=== PATIENT | male | born 1965 | race Caucasian/White ===

== ENCOUNTER → 2017-05-26 | Outpatient (CLI) | payer MEDICARE, OTHER ==
--- NOTE | 2017-05-26 12:53 | KCIC ---
MRI right foot without contrast dated 05/26/2017. No comparison available. Clinical indication: Pain and swelling at first metatarsal. Ankle surgery 30 years ago. TECHNIQUE: T1 and T2-weighted imaging performed in 3 planes to include the mid to forefoot region. No contrast administered. FINDINGS: There is focal skin thickening and induration at the plantar aspect of the first MTP joint. Increased T2 signal within the subcutaneous tissues. The signal abnormality extends deep to the sesamoid bones and abductor hallucis tendon which appears ill-defined. There is hyperintense T2 signal and low T1 signal within the medial and lateral sesamoids. Mild increased T2 signal within the marrow of the base and shaft of the first proximal phalanx and head of first metatarsal, without significant loss of signal on T1. No significant joint effusion. The flexor tendon is intact. Plantar plate is grossly intact. Marrow signal is otherwise homogeneous. There is patchy edema throughout the plantar foot musculature with mild diffuse muscle atrophy. No well-circumscribed fluid collection to suggest abscess. IMPRESSION: 1. Skin thickening and skin ulceration over the plantar foot with extension deep to involve the sesamoid bones of the first MTP joint. There is abnormal signal within the sesamoid bones which could be related to sesamoiditis or chronic osteomyelitis. 2. Mild edema edema within the marrow of the first proximal phalanx and first metatarsal head without significant T1 signal loss. This is likely reactive. 3. Diffuse edema within the plantar foot musculature, nonspecific. Consider infectious myositis. Vasogenic or neurogenic edema or other potential causes. No evidence of abscess. Electronically signed by: Hugh Tapia MD (05/26/2017 12:50 PM) [facility]
== END | disposition home or self-care (01) ==
LOC: KCIC MRI 11:29
PROVIDERS: ATTEND Podiatrist Foot & Ankle Surgery
DX: M86.9 Osteomyelitis, unspecified (principal); L98.498 Non-pressure chronic ulcer of skin of other sites with other specified severity; R60.9 Edema, unspecified
CPT/HCPCS: 73718

== ENCOUNTER 2017-06-01 07:30 | Inpatient (IN) | payer MEDICARE, OTHER ==
[~2017-06-01] VITALS: Ht 180.3 cm; Wt 86.6 kg
[2017-06-01 13:09] VITALS: BP 141/68
[2017-06-01] MEDS ORDERED: 0.9 % SODIUM CHLORIDE 10 ML DISP.SYRIN. IV PRN (13:15)
[2017-06-01 14:13] LABS: BASO % 1 % (0-3); EOS % 2 % (0-3); HEMOGLOBIN 13.5 g/dL (13.0-17.5); LYMPH # 0.8 x10^3/uL (1.0-4.8); LYMPH % 13 % (24-48); MEAN CORPUSCULAR HEMOGLOBIN 32 pg (25-35); MEAN CORPUSCULAR HGB CONC 34 g/dL (31-37); MEAN CORPUSCULAR VOLUME 96 fL (79-100); MONO % 10 % (0-9); NEUT % 74 % (31-73); PLATELET COUNT 263 x10^3/uL (140-400); RED BLOOD COUNT 4.16 x10^6/uL (4.30-5.70); RED CELL DISTRIBUTION WIDTH 14.2 % (11.5-14.5); WHITE BLOOD COUNT 6.4 x10^3/uL (4.0-11.0)
[2017-06-01 14:31] LABS: ALBUMIN 3.5 g/dL (3.4-5.0); ALBUMIN/GLOBULIN RATIO 0.6 (1.0-1.7); CREATININE 3.9 mg/dL (0.7-1.3); GFR 16.2; POTASSIUM 3.7 mmol/L (3.5-5.1); TOTAL BILIRUBIN 0.5 mg/dL (0.2-1.0); TOTAL PROTEIN 9.3 g/dL (6.4-8.2)
[2017-06-01 15:00] VITALS: BP 171/80
[2017-06-01 19:00] VITALS: BP 156/82
[2017-06-01] MEDS ORDERED: MICAFUNGIN 100 MG in IV DEXTROSE 5% 100 ML IV ONE (19:00)
--- NOTE | 2017-06-01 19:57 | PDOC1 ---
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 [employer] plans 1st MP resection in AM, HAS BEEN ON DIALYSIS SINCE EARLY 2017 FOLLOWED BY [facility] Reason for Visit: HERE FOR IV ANTIBIOTICS , SUPPORT BEFORE SURGERY Past Medical History Cardiovascular: No pertinent hx Pulmonary: COPD GI: No pertinent hx Renal/: Chronic renal failure Endocrine: Diabetes Family History Family History: Alcohol Abuse, Diabetes Social History Smoke: <1 pack per day ALCOHOL: heavy Current Problem List Problem List DIABETES HTN CKD TOBACCO ABUSE ESRD ON DIALYSIS Problems: Current Medications Current Medications Current Medications Sodium Chloride (Normal Saline Flush) 3 ml PRN DAILY PRN IV AFTER MEDS AND BLOOD DRAWS; Start 06/01/17 at 13:15 Ondansetron HCl (Zofran) 4 mg PRN Q6HRS PRN IV NAUSEA/VOMITING; Start 06/02/17 at 07:00; Stop 06/03/17 at 06:59 Fentanyl Citrate (Fentanyl 2ml Vial) 25 mcg PRN Q5MIN PRN IV MILD PAIN; Start 06/02/17 at 07:00; Stop 06/03/17 at 06:59 Fentanyl Citrate (Fentanyl 2ml Vial) 50 mcg PRN Q5MIN PRN IV MODERATE PAIN; Start 06/02/17 at 07:00; Stop 06/03/17 at 06:59 Morphine Sulfate 1 mg PRN Q10MIN PRN IV SEVERE PAIN; Start 06/02/17 at 07:00; Stop 06/03/17 at 06:59 Ringer's Solution 1,000 ml @ 30 mls/hr Q24H IV ; Start 06/02/17 at 07:00; Stop 06/02/17 at 18:59 Lidocaine HCl (Xylocaine-Mpf 1% Vial) 2 ml PRN 1X PRN ID IV START; Start at 07:00; Stop 06/03/17 at 06:59 Hydromorphone HCl (Dilaudid) 0.5 mg PRN Q10MIN PRN IV SEV PAIN, Second choice; Start 06/02/17 at 07:00; Stop 06/03/17 at 06:59 Prochlorperazine Edisylate (Compazine) 5 mg PACU PRN PRN IV NAUSEA, MRX1; Start 06/02/17 at 07:00; Stop 06/03/17 at 06:59 Piperacillin Sod/ Tazobactam Sod 2.25 gm/Dextrose 50 ml @ 100 mls/hr Q8HRS IV ; Start 06/01/17 at 22:00; Status Cancel Clindamycin Phosphate 50 ml @ 100 mls/hr Q8H IV ; Start 06/01/17 at 19:00 Vancomycin HCl (Vanco Per Pharmacy) 1 each PRN DAILY PRN MC SEE COMMENTS; Start 06/01/17 at 19:00; Status UNV Micafungin Sodium 100 mg/Dextrose 100 ml @ 100 mls/hr 1X ONCE IV ; Start 06/01 at 19:00; Stop 06/01/17 at 19:12; Status DC Piperacillin Sod/ Tazobactam Sod (Zosyn) 2.25 gm Q8HRS IVP ; Start 06/01/17 at 22:00 Vancomycin HCl 2 gm/Dextrose/ Sodium Chloride 500 ml @ 250 mls/hr 1X ONCE IV ; Start 06/01/17 at 20:00; Stop 06/01/17 at 21:59 Micafungin Sodium 100 mg/Sodium Chloride 100 ml @ 100 mls/hr 1X ONCE IV ; Start 06/01/17 at 20:00; Stop 06/01/17 at 20:59 Allergies Allergies: Coded Allergies: No Known Drug Allergies (Unverified , 06/01/17) ROS Review of System 14 PT ROS OTHERWISE NEG General: YES: Fatigue, No: Chills, Night Sweats, Malaise, Appetite, Other PSYCHOLOGICAL ROS: YES: Anxiety, No: Behavioral Disorder, Concentration difficultie, Decreased libido, Depression, Disorientation, Hallucinations, Hostility, Irritablity, Memory difficulties, Mood Swings, Obsessive thoughts, Physical abuse, Sexual abuse, Sleep disturbances, Suicidal ideation, Other Eyes: No Blurry vision, No Decreased vision, No Double vision, No Dry eyes, No Excessive tearing, No Eye Pain, No Itchy Eyes, No Loss of vision, No Photophobia , No Scotomata, No Uses contacts, No Uses glasses, No Other HEENT: No: Heacaches, Visual Changes, Hearing change, Nasal congestion, Nasal discharge, Oral lesions, Sinus pain, Sore Throat, Epistaxis, Sneezing, Snoring, Tinnitus, Vertigo, Vocal changes, Other ALLERGY AND IMMUNOLOGY: No: Hives, Insect Bite Sensitivity, Itchy/Watery Eyes, Nasal Congestion, Post Nasal Drip, Seasonal Allergies, Other ENDOCRINE: YES: Breast Changes, Galactorrhea, Hair Pattern Changes, Hot Flashes , Malaise/lethargy, Mood Swings, Palpitations, Polydipsia/polyuria, Skin Changes , Temperature Intolerance, Unexpected Weight Changes, Other Respiratory: No: Cough, Hemoptysis, Orthopnea, Pleuritic Pain, Shortness of breath, SOB with excertion, Sputum Changes, Stridor, Tachypnea, Wheezing, Other Cardiovascular: No Chest Pain, No Palpitations, No Orthopnea, No Paroxysmal Noc. Dyspnea, No Edema, No Lt Headedness, No Other Genitourinary: No Dysuria, No Frequency, No Incontinence, No Hematuria, No Retention, No Discharge, No Urgency, No Pain, No Flank Pain, No Other, No , No , No , No , No , No , No Skin: Yes Skin Lesion Changes Physical Exam General: Alert, Oriented X3, Cooperative, mild distress HEENT: PERRLA, EOMI, Mucous membr. moist/pink Lungs: Clear to auscultation, Normal air movement Heart: S1S2 Breasts: Not examined, Pt decl breast exam Abdomen: Normal bowel sounds, Soft Rectal Exam: not examined Extremities: No cyanosis Skin: Other (MARKED LESION DISTAL PLANTAR ASPECT) Psych/Mental Status: Mental status NL Vitals Vitals Vital Signs Date Time Temp Pulse Resp B/P (MAP) Pulse Ox O2 Delivery O2 Flow Rate FiO2 06/01/17 19:10 Room Air 06/01/17 15:00 97.5 92 18 171/80 (110) 99 97.5 Labs Labs PULMONIC VALVE The pulmonary valve is normal in structure and function. Doppler and Color Flow revealed trace pulmonic valvular regurgitation. GREAT VESSELS The aortic root is normal in size. The ascending aorta is normal in size. PERICARDIAL EFFUSION There is no evidence of significant pericardial effusion. Critical Notification Critical Value: No <Conclusion> Left ventricle systolic function is normal. The Ejection Fraction is 65%. Tissue Doppler imaging reveals abnormal left ventricular diastolic dysfunction. Transmitral Doppler flow pattern is Grade I-abnormal relaxation pattern. There is mild concentric left ventricular hypertrophy. The left atrium size is normal. The right atrium size is normal. The aortic valve is normal in structure and function. Doppler and Color Flow revealed trace to mild mitral regurgitation. Doppler and Color Flow revealed trace tricuspid regurgitation. There is no pulmonary hypertension. The PA pressure was estimated at 18 mmHg. Doppler and Color Flow revealed trace pulmonic valvular regurgitation. DICTATED and SIGNED BY: JIMY GALARZA MD DATE: 12/02/152025 Laboratory Tests Test 06/01/17 13:12 06/01/17 13:40 Glucose (Fingerstick) 184 mg/dL (70-99) White Blood Count 6.4 x10^3/uL (4.0-11.0) Red Blood Count 4.16 x10^6/uL (4.30-5.70) Hemoglobin 13.5 g/dL (13.0-17.5) Hematocrit 40.0 % (39.0-53.0) Mean Corpuscular Volume 96 fL (79-100) Mean Corpuscular Hemoglobin 32 pg (25-35) Mean Corpuscular Hemoglobin Concent 34 g/dL (31-37) Red Cell Distribution Width 14.2 % (11.5-14.5) Platelet Count 263 x10^3/uL (140-400) Neutrophils (%) (Auto) 74 % (31-73) Lymphocytes (%) (Auto) 13 % (24-48) Monocytes (%) (Auto) 10 % (0-9) Eosinophils (%) (Auto) 2 % (0-3) Basophils (%) (Auto) 1 % (0-3) Neutrophils # (Auto) 4.7 x10^3uL (1.8-7.7) Lymphocytes # (Auto) 0.8 x10^3/uL (1.0-4.8) Monocytes # (Auto) 0.7 x10^3/uL (0.0-1.1) Eosinophils # (Auto) 0.1 x10^3/uL (0.0-0.7) Basophils # (Auto) 0.0 x10^3/uL (0.0-0.2) Erythrocyte Sedimentation Rate 115 (0-15) Sodium Level 139 mmol/L (136-145) Potassium Level 3.7 mmol/L (3.5-5.1) Chloride Level 96 mmol/L (98-107) Carbon Dioxide Level 32 mmol/L (21-32) Anion Gap 11 (6-14) Blood Urea Nitrogen 28 mg/dL (8-26) Creatinine 3.9 mg/dL (0.7-1.3) Estimated GFR (Cockcroft-Gault) 16.2 BUN/Creatinine Ratio 7 (6-20) Glucose Level 192 mg/dL (70-99) Calcium Level 10.0 mg/dL (8.5-10.1) Total Bilirubin 0.5 mg/dL (0.2-1.0) Aspartate Amino Transf (AST/SGOT) 32 U/L (15-37) Alanine Aminotransferase (ALT/SGPT) 30 U/L (16-63) Alkaline Phosphatase 120 U/L (46-116) C-Reactive Protein, Quantitative 60.0 mg/L (0-3.3) Total Protein 9.3 g/dL (6.4-8.2) Albumin 3.5 g/dL (3.4-5.0) Albumin/Globulin Ratio 0.6 (1.0-1.7) Laboratory Tests Test 06/01/17 13:12 06/01/17 13:40 Glucose (Fingerstick) 184 mg/dL (70-99) White Blood Count 6.4 x10^3/uL (4.0-11.0) Red Blood Count 4.16 x10^6/uL (4.30-5.70) Hemoglobin 13.5 g/dL (13.0-17.5) Hematocrit 40.0 % (39.0-53.0) Mean Corpuscular Volume 96 fL (79-100) Mean Corpuscular Hemoglobin 32 pg (25-35) Mean Corpuscular Hemoglobin Concent 34 g/dL (31-37) Red Cell Distribution Width 14.2 % (11.5-14.5) Platelet Count 263 x10^3/uL (140-400) Neutrophils (%) (Auto) 74 % (31-73) Lymphocytes (%) (Auto) 13 % (24-48) Monocytes (%) (Auto) 10 % (0-9) Eosinophils (%) (Auto) 2 % (0-3) Basophils (%) (Auto) 1 % (0-3) Neutrophils # (Auto) 4.7 x10^3uL (1.8-7.7) Lymphocytes # (Auto) 0.8 x10^3/uL (1.0-4.8) Monocytes # (Auto) 0.7 x10^3/uL (0.0-1.1) Eosinophils # (Auto) 0.1 x10^3/uL (0.0-0.7) Basophils # (Auto) 0.0 x10^3/uL (0.0-0.2) Erythrocyte Sedimentation Rate 115 (0-15) Sodium Level 139 mmol/L (136-145) Potassium Level 3.7 mmol/L (3.5-5.1) Chloride Level 96 mmol/L (98-107) Carbon Dioxide Level 32 mmol/L (21-32) Anion Gap 11 (6-14) Blood Urea Nitrogen 28 mg/dL (8-26) Creatinine 3.9 mg/dL (0.7-1.3) Estimated GFR (Cockcroft-Gault) 16.2 BUN/Creatinine Ratio 7 (6-20) Glucose Level 192 mg/dL (70-99) Calcium Level 10.0 mg/dL (8.5-10.1) Total Bilirubin 0.5 mg/dL (0.2-1.0) Aspartate Amino Transf (AST/SGOT) 32 U/L (15-37) Alanine Aminotransferase (ALT/SGPT) 30 U/L (16-63) Alkaline Phosphatase 120 U/L (46-116) C-Reactive Protein, Quantitative 60.0 mg/L (0-3.3) Total Protein 9.3 g/dL (6.4-8.2) Albumin 3.5 g/dL (3.4-5.0) Albumin/Globulin Ratio 0.6 (1.0-1.7) VTE Prophylaxis Ordered VTE Prophylaxis Devices: Yes VTE Pharmacological Prophylaxi: Yes Assessment/Plan Assessment/Plan 1. ADVANCED DIABETIC FOOT ULCER 2. CELLULITIS 3. Tobacco abuse 4. ESRD on dialysis 5. mod alcohol abuse 6. possible osteomyelitis 7. dietary noncompliance plan iv antibiotics consult ID DR HOLCOMB FOR SURGERY Lovenox dvt prophylaxis consult nephrology EKG, CXR BIB SCHAFFER MD Jun 01, 2017 19:57
[2017-06-01] MEDS ORDERED: VANCOMYCIN 2 GM in IV DEXTROSE 5 %-0.45 % NACL 500 ML IV ONE (20:00)
[2017-06-01] MEDS ORDERED: MICAFUNGIN 100 MG in IV NORMAL SALINE 100ML 100 ML IV ONE (20:00)
[2017-06-01] MEDS: VANCOMYCIN PER PHARMACY MC PRN (20:12)
[2017-06-01] MEDS: CLINDAMYCIN 600MG PREMIX 50 ML IV SCH (20:46)
[2017-06-01] MEDS: PIPERACILLIN/TAZO IV Push 2.25 GM VIAL. IVP SCH (20:49)
--- NOTE | 2017-06-01 21:44 | RAD ---
Bilateral lower extremity arterial Doppler 06/01/2017 CLINICAL INDICATION: Osteomyelitis of the right toe with presurgical evaluation. COMPARISON: None. FINDINGS: Grayscale, color Doppler and spectral waveform analysis was obtained of the bilateral lower extremity arterial system. Right lower extremity: Common femoral: Patent with triphasic waveforms 132 cm/s Proximal superficial femoral: Patent with triphasic waveforms 100 cm/s Deep femoral: Patent with triphasic waveforms 133 cm/s Mid superficial femoral: Patent with triphasic waveforms 114 cm/s Distal superficial femoral: Patent with triphasic waveforms 98 cm/s Popliteal: Patent with triphasic waveforms 108 cm/s Proximal posterior tibial: Patent with triphasic waveforms 70 cm/s Peroneal: Patent triphasic waveforms 71 cm/s Distal posterior tibial: Patent triphasic waveforms 58 cm/s Dorsalis pedis: Patent triphasic waveforms 114 cm/s Anterior tibial: Patent triphasic waveforms 91 cm/s There are scattered calcified plaque throughout the right lower extremity arterial system without evidence of focal occlusion. Left lower extremity: Common femoral: Patent triphasic waveforms 84 cm/s Proximal superficial femoral: Patent triphasic waveforms 70 cm/s Deep femoral: Patent triphasic waveforms 54 cm/s Mid superficial femoral: Patent triphasic waveforms 84 cm/s Distal superficial femoral: Patent triphasic waveforms 73 cm/s Popliteal: Patent triphasic waveforms 82 cm/s Mid posterior tibial: Patent triphasic waveforms 67 cm/s Distal posterior tibial: Patent triphasic waveforms 67 cm/s Peroneal: Patent triphasic waveforms 81 cm/s Dorsalis pedis: Patent triphasic waveforms 102 cm/s Anterior tibial: Patent triphasic waveforms 88 cm/s There is scattered calcified atheromatous disease throughout the left lower extremity arterial system without focal occlusion. IMPRESSION: Bilateral lower extremity arterial calcified plaque without evidence of hemodynamically significant stenosis. Electronically signed by: Gustavo Pinzon MD (06/01/2017 9:41 PM) [facility]
[2017-06-01] MEDS: HEPARIN PF for SUB-Q USE 5,000 UNIT/0.5 ML VIAL. SQ SCH ×2 (22:00→23:46)
[2017-06-01] MEDS ORDERED: PIPERACILLIN/TAZOBACTAM 2.25 GM in IV DEXTROSE 5% 50 ML IV SCH (22:00)
--- NOTE | 2017-06-01 22:14 | EKG ---
[facility] [address] [place] [address] Test Date: 2017-06-01 Test Time: 22:12:15 Pat Name: AVA CARRASQUILLO Department: Room: 408 Gender: M Art Educator: : 1965 Requested By: BIB SCHAFFER Order Number: [id number] Reading MD: Byron Reina MD Measurements Intervals [place] Rate: 83 P: -39 DE: 152 QRS: 33 QRSD: 94 T: 59 QT: 358 QTc: 421 Interpretive Statements SINUS RHYTHM NON-SPECIFIC ST/T CHANGES Electronically Signed On 06-09-2017 14:32:50 MAINTENANCE PLANNER by Byron Reina MD
[2017-06-02] VITALS (14 sets, daily range): BP systolic 132–179; BP diastolic 52–102
[2017-06-02] MEDS: CLINDAMYCIN 600MG PREMIX 50 ML IV SCH (02:19)
[2017-06-02 04:28] LABS: BASO % 1 % (0-3); EOS % 5 % (0-3); HEMATOCRIT 34.1 % (39.0-53.0); HEMOGLOBIN 11.5 g/dL (13.0-17.5); LYMPH # 1.2 x10^3/uL (1.0-4.8); LYMPH % 18 % (24-48); MEAN CORPUSCULAR HEMOGLOBIN 32 pg (25-35); MEAN CORPUSCULAR HGB CONC 34 g/dL (31-37); MEAN CORPUSCULAR VOLUME 96 fL (79-100); MONO % 11 % (0-9); NEUT % 66 % (31-73); PLATELET COUNT 204 x10^3/uL (140-400); RED BLOOD COUNT 3.57 x10^6/uL (4.30-5.70); RED CELL DISTRIBUTION WIDTH 14.4 % (11.5-14.5); WHITE BLOOD COUNT 6.4 x10^3/uL (4.0-11.0)
[2017-06-02 04:56] LABS: ALBUMIN 2.6 g/dL (3.4-5.0); ALBUMIN/GLOBULIN RATIO 0.6 (1.0-1.7); CALCIUM 8.7 mg/dL (8.5-10.1); CREATININE 4.9 mg/dL (0.7-1.3); GFR 12.4; POTASSIUM 3.6 mmol/L (3.5-5.1); TOTAL BILIRUBIN 0.5 mg/dL (0.2-1.0); TOTAL PROTEIN 7.2 g/dL (6.4-8.2)
[2017-06-02] MEDS: PIPERACILLIN/TAZO IV Push 2.25 GM VIAL. IVP SCH ×3 (05:32→20:12)
[2017-06-02] MEDS ORDERED: LIDOCAINE 1% 20 ML VIAL. ONE (06:51)
[2017-06-02] MEDS ORDERED: BUPIVACAINE 0.5% 50 ML VIAL. ONE (06:51)
[2017-06-02] MEDS ORDERED: DEXAMETHASONE SOD PHOS 4 MG/ML VIAL ONE (06:52)
[2017-06-02] MEDS ORDERED: POVIDONE-IODINE 10% TOPICAL OINTMENT 28GM TUBE. TP ONE (06:52)
[2017-06-02] MEDS ORDERED: LIDOCAINE 1% PF 2 ML VIAL. ID PRN (07:00)
[2017-06-02] MEDS ORDERED: ONDANSETRON PF 4 MG/2 ML VIAL. IV PRN (07:00)
[2017-06-02] MEDS ORDERED: PROCHLORPERAZINE 10 MG/2 ML VIAL. IV PRN (07:00)
[2017-06-02] MEDS ORDERED: MORPHINE SULFATE 2 MG/ML DISP.SYRIN. IV PRN (07:00)
[2017-06-02] MEDS ORDERED: HYDROmorphone 2 MG/ML VIAL IV PRN (07:00)
[2017-06-02] MEDS ORDERED: IV RINGERS,LACTATED 1000ML 1,000 ML IV SCH (07:00)
[2017-06-02] MEDS ORDERED: fentaNYL PF VIAL 100 MCG/2 ML VIAL IV PRN ×2 (07:00)
[2017-06-02] MEDS ORDERED: PROPOFOL 20 ML IV ONE (07:17)
[2017-06-02] MEDS ORDERED: fentaNYL PF VIAL 100 MCG/2 ML VIAL ONE (07:17)
[2017-06-02] MEDS ORDERED: DEXAMETHASONE SOD PHOS 20 MG/5 ML VIAL. ONE (07:17)
[2017-06-02] MEDS ORDERED: ONDANSETRON PF 4 MG/2 ML VIAL. ONE (07:17)
[2017-06-02] MEDS ORDERED: LIDOCAINE 2% PF Vial for OR 5 ML VIAL. ONE (07:17)
--- NOTE | 2017-06-02 07:19 | RAD ---
Portable chest, 06/01/2017: History: Preop evaluation for toe amputation, diabetes The heart size and pulmonary vascularity are normal. No pulmonary infiltrates are seen. There is no evidence of pleural fluid. IMPRESSION: No acute cardiopulmonary abnormality is detected.
--- NOTE | 2017-06-02 07:26 | PDOC ---
Infectious Disease Note ROS ROS Vital Sign Vital Signs Vital Signs Date Time Temp Pulse Resp B/P (MAP) Pulse Ox O2 Delivery O2 Flow Rate FiO2 06/02/17 02:36 98.1 81 16 147/52 (83) Room Air 98.1 06/01/17 23:00 94 Labs Lab Laboratory Tests Test 06/01/17 13:12 06/01/17 13:40 06/01/17 20:54 06/02/17 03:40 Glucose (Fingerstick) 184 mg/dL (70-99) 152 mg/dL (70-99) White Blood Count 6.4 x10^3/uL (4.0-11.0) 6.4 x10^3/uL (4.0-11.0) Red Blood Count 4.16 x10^6/uL (4.30-5.70) 3.57 x10^6/uL (4.30-5.70) Hemoglobin 13.5 g/dL (13.0-17.5) 11.5 g/dL (13.0-17.5) Hematocrit 40.0 % (39.0-53.0) 34.1 % (39.0-53.0) Mean Corpuscular Volume 96 fL (79-100) 96 fL (79-100) Mean Corpuscular Hemoglobin 32 pg (25-35) 32 pg (25-35) Mean Corpuscular Hemoglobin Concent 34 g/dL (31-37) 34 g/dL (31-37) Red Cell Distribution Width 14.2 % (11.5-14.5) 14.4 % (11.5-14.5) Platelet Count 263 x10^3/uL (140-400) 204 x10^3/uL (140-400) Neutrophils (%) (Auto) 74 % (31-73) 66 % (31-73) Lymphocytes (%) (Auto) 13 % (24-48) 18 % (24-48) Monocytes (%) (Auto) 10 % (0-9) 11 % (0-9) Eosinophils (%) (Auto) 2 % (0-3) 5 % (0-3) Basophils (%) (Auto) 1 % (0-3) 1 % (0-3) Neutrophils # (Auto) 4.7 x10^3uL (1.8-7.7) 4.2 x10^3uL (1.8-7.7) Lymphocytes # (Auto) 0.8 x10^3/uL (1.0-4.8) 1.2 x10^3/uL (1.0-4.8) Monocytes # (Auto) 0.7 x10^3/uL (0.0-1.1) 0.7 x10^3/uL (0.0-1.1) Eosinophils # (Auto) 0.1 x10^3/uL (0.0-0.7) 0.3 x10^3/uL (0.0-0.7) Basophils # (Auto) 0.0 x10^3/uL (0.0-0.2) 0.0 x10^3/uL (0.0-0.2) Erythrocyte Sedimentation Rate 115 (0-15) Sodium Level 139 mmol/L (136-145) 132 mmol/L (136-145) Potassium Level 3.7 mmol/L (3.5-5.1) 3.6 mmol/L (3.5-5.1) Chloride Level 96 mmol/L (98-107) 95 mmol/L (98-107) Carbon Dioxide Level 32 mmol/L (21-32) 25 mmol/L (21-32) Anion Gap 11 (6-14) 12 (6-14) Blood Urea Nitrogen 28 mg/dL (8-26) 41 mg/dL (8-26) Creatinine 3.9 mg/dL (0.7-1.3) 4.9 mg/dL (0.7-1.3) Estimated GFR (Cockcroft-Gault) 16.2 12.4 BUN/Creatinine Ratio 7 (6-20) 8 (6-20) Glucose Level 192 mg/dL (70-99) 155 mg/dL (70-99) Hemoglobin A1c 7.1 % (4.8-5.6) Calcium Level 10.0 mg/dL (8.5-10.1) 8.7 mg/dL (8.5-10.1) Total Bilirubin 0.5 mg/dL (0.2-1.0) 0.5 mg/dL (0.2-1.0) Aspartate Amino Transf (AST/SGOT) 32 U/L (15-37) 25 U/L (15-37) Alanine Aminotransferase (ALT/SGPT) 30 U/L (16-63) 22 U/L (16-63) Alkaline Phosphatase 120 U/L (46-116) 89 U/L (46-116) C-Reactive Protein, Quantitative 60.0 mg/L (0-3.3) Total Protein 9.3 g/dL (6.4-8.2) 7.2 g/dL (6.4-8.2) Albumin 3.5 g/dL (3.4-5.0) 2.6 g/dL (3.4-5.0) Albumin/Globulin Ratio 0.6 (1.0-1.7) 0.6 (1.0-1.7) Micro MRI 05/26 - IMPRESSION: 1. Skin thickening and skin ulceration over the plantar foot with extension deep to involve the sesamoid bones of the first MTP joint. There is abnormal signal within the sesamoid bones which could be related to sesamoiditis or chronic osteomyelitis. 2. Mild edema edema within the marrow of the first proximal phalanx and first metatarsal head without significant T1 signal loss. This is likely reactive. 3. Diffuse edema within the plantar foot musculature, nonspecific. Consider infectious myositis. Vasogenic or neurogenic edema or other potential causes. No evidence of abscess. Objective Assessment Right foot wound on plantar aspect - likely osteomyelitis DM since age 16 CKD on HD - since Jul 2016 COPD Plan Plan of Care Instituted Vanc/Clinda/Zosyn/Micafungin 06/01. Will d/c Clinda and Micafungin Begin Fluconazole F/u labs and cults Await surgery Thank you # [id number] LEEANNE MARISCAL MD Jun 02, 2017 07:26
[2017-06-02] MEDS ORDERED: IV NORMAL SALINE 250ML 500 ML IV PRN (07:30)
[2017-06-02] MEDS: LACTOBACILLUS RHAMNOSUS GG 1 CAPSULE. PO SCH ×2 (07:49→20:12)
[2017-06-02] MEDS ORDERED: PHENYLEPHRINE 10 MG/ML VIAL. ONE (07:56)
[2017-06-02] MEDS ORDERED: 0.9 % SODIUM CHLORIDE 50 ML VIAL. IJ ONE (07:57)
[2017-06-02] MEDS ORDERED: SEVOFLURANE 31 TO 60 MINUTES. IH ONE (07:57)
[2017-06-02] MEDS ORDERED: IV NORMAL SALINE 1000ML BAG 1,000 ML IV SCH (08:00)
--- NOTE | 2017-06-02 08:36 | CONS ---
DATE OF CONSULTATION: 06/02/2017 The patient's room is 408, but seen in the preop room. REQUESTING PHYSICIAN: Dr. Hernadez. REASON FOR CONSULTATION: Osteomyelitis. HISTORY OF PRESENT ILLNESS: The patient is a 52-year-old gentleman with history of diabetes since age 16, also has some COPD, who has had problems with his right foot with ulcers on and off since 2012. Additionally, he started dialysis in 07/2016. He states he has been doing fairly well until he was instructed to put some lotion on his feet. He is a little questionable historian because he states he has been putting lotion on his foot for a year, and now, he has developed a worsening ulcer on his right foot. He denies any trauma to the area. Denies any new shoes, but states that it just kind of suddenly worsened with increasing pain and redness. He denies taking any antibiotics prior to admission. He underwent an MRI of his foot on 05/26, which revealed skin thickening, skin ulceration of the plantar foot with extension deep to involve the sesamoid bones of the first metatarsal joint, abnormal signal in the sesamoid bones which could be related to sesamoiditis, chronic osteomyelitis. He has mild edema within the marrow on the first proximal phalanx, first metatarsal head without significant T1 signal loss, likely reactive, and he also has diffuse edema within the plantar foot musculature. There was nonspecific considered infectious myositis. He was admitted yesterday secondary to a worsening ulcer and to undergo first metatarsal resection in the morning. I was consulted yesterday afternoon, instituted vancomycin, clindamycin, Zosyn and micafungin as well as consulting Dr. Jen Savage for dialysis and order an arterial Doppler given his longstanding history of diabetes and history of smoking. There are no culture results in the computer from previous admissions. Currently, the patient is lying in bed. He is fairly comfortable. Denies any fever, chills, sweats. He has no headaches. He has no change in vision, did have cataract surgery. He has no sore throat, cough or chest pain. No nausea, vomiting, diarrhea or constipation. He does make some urine occasionally without any complications. Denies any rashes or falls or traumas. PAST MEDICAL HISTORY: Positive for diabetes, hypertension, history of COPD. Chronic renal failure, on dialysis as well as foot wounds. PAST SURGICAL HISTORY: Positive for cataract surgery and denies any other surgeries except for some local debridements. REVIEW OF SYSTEMS: Otherwise negative except mentioned above. ALLERGIES: No known drug allergies. FAMILY HISTORY: Positive for diabetes, hypertension, alcohol abuse. SOCIAL HISTORY: He quit smoking, does use alcohol. Has no pets and is not working, currently on social security. CURRENT MEDICATIONS: Include the clindamycin, micafungin, vancomycin, Zosyn. He did receive dexamethasone, lactobacillus, heparin. Other meds are available and reviewed in chart. PHYSICAL EXAMINATION: He has got an AV graft or shunt in his left upper extremity without signs of any complications. LABORATORY DATA: White count was 6.4 on admission, 6.4 currently. Hemoglobin 11.5, platelets of 204, with 66 neutrophils, 18 lymphs. Sed rate was 115. Creatinine glucose 155. Normal liver function study tests. MRI reviewed in the history of present illness. Arterial Dopplers show bilateral lower extremity arterial calcified plaque without evidence of hemodynamically significant stenosis. Chest x-ray without acute pulmonary abnormality. IMPRESSION: 1. Right foot wound on plantar aspect, likely osteomyelitis. 2. Diabetes since age 16. 3. Chronic kidney disease, on hemodialysis since 07/2016. 4. Chronic obstructive pulmonary disease. RECOMMENDATIONS: Again, on 06/01, I instituted vancomycin, clindamycin, Zosyn and micafungin. Today, we will discontinue the clindamycin and micafungin. We will continue the vancomycin and Zosyn. We will add fluconazole. Follow up on labs and cultures, await for his surgery. Thank you Dr. Hernadez for allowing me to participate in the patient's care. If you have any questions, please do not hesitate to contact me. LEEANNE MARISCAL MD DR: JENNIFER/sarah JOB#: [id number] / [id number]
--- NOTE | 2017-06-02 08:51 | PDOC2 ---
CONSULT Date of Consult Date of Consult DATE: 06/02/17 TIME: 08:38 Reason for Consult Reason for Consult: osteomyelitis right foot 1st ray Identification/Chief Complaint Chief Complaint chronic ulceration, MRI confirms osteomyelitis right 1st metatarsal head, sesamoids, proximal phalanx Problems: Source Source: Patient History of Present Illness Reason for Visit: 52 year old male with DM, peripheral neuropathy, non compliance, ESRD on HD Monday, , Monday admitted to [facility] for IV Antibiotics for treatment of osteomyelitis. Patient has been non compliant with non weightbearing right foot as he states he has to walk to bus for dialysis and has no ride. He has had home health performing local wound care. MRI was ordered and noted + osteomyelitis right foot. He denies nausea, vomitting, fever, chills. Past Medical History Cardiovascular: No pertinent hx Pulmonary: COPD GI: No pertinent hx Renal/: Chronic renal failure Endocrine: Diabetes Family History Family History: Alcohol Abuse, Diabetes Social History <1 pack per day ALCOHOL: heavy Current Medications Current Medications Current Medications Sodium Chloride (Normal Saline Flush) 3 ml PRN DAILY PRN IV AFTER MEDS AND BLOOD DRAWS; Start 06/01/17 at 13:15 Ondansetron HCl (Zofran) 4 mg PRN Q6HRS PRN IV NAUSEA/VOMITING; Start 06/02/17 at 07:00; Stop 06/03/17 at 06:59 Fentanyl Citrate (Fentanyl 2ml Vial) 25 mcg PRN Q5MIN PRN IV MILD PAIN; Start 06/02/17 at 07:00; Stop 06/03/17 at 06:59 Fentanyl Citrate (Fentanyl 2ml Vial) 50 mcg PRN Q5MIN PRN IV MODERATE PAIN; Start 06/02/17 at 07:00; Stop 06/03/17 at 06:59 Morphine Sulfate 1 mg PRN Q10MIN PRN IV SEVERE PAIN; Start 06/02/17 at 07:00; Stop 06/03/17 at 06:59 Ringer's Solution 1,000 ml @ 30 mls/hr Q24H IV ; Start 06/02/17 at 07:00; Stop 06/02/17 at 18:59 Lidocaine HCl (Xylocaine-Mpf 1% Vial) 2 ml PRN 1X PRN ID IV START; Start at 07:00; Stop 06/03/17 at 06:59 Hydromorphone HCl (Dilaudid) 0.5 mg PRN Q10MIN PRN IV SEV PAIN, Second choice; Start 06/02/17 at 07:00; Stop 06/03/17 at 06:59 Prochlorperazine Edisylate (Compazine) 5 mg PACU PRN PRN IV NAUSEA, MRX1; Start 06/02/17 at 07:00; Stop 06/03/17 at 06:59 Piperacillin Sod/ Tazobactam Sod 2.25 gm/Dextrose 50 ml @ 100 mls/hr Q8HRS IV ; Start 06/01/17 at 22:00; Status Cancel Clindamycin Phosphate 50 ml @ 100 mls/hr Q8H IV Last administered on 02:19; Start 06/01/17 at 19:00; Stop 06/02/17 at 07:26; Status DC Vancomycin HCl (Vanco Per Pharmacy) 1 each PRN DAILY PRN MC SEE COMMENTS Last administered on 06/01/17 20:12; Start 06/01/17 at 19:00 Micafungin Sodium 100 mg/Dextrose 100 ml @ 100 mls/hr 1X ONCE IV ; Start 06/01 at 19:00; Stop 06/01/17 at 19:59; Status Cancel Piperacillin Sod/ Tazobactam Sod (Zosyn) 2.25 gm Q8HRS IVP Last administered on 06/02/17 05:32; Start 06/01/17 at 22:00 Vancomycin HCl 2 gm/Dextrose/ Sodium Chloride 500 ml @ 250 mls/hr 1X ONCE IV Last administered on 06/01/17 20:46; Start 06/01/17 at 20:00; Stop 06/01/17 at 21:59; Status DC Micafungin Sodium 100 mg/Sodium Chloride 100 ml @ 100 mls/hr 1X ONCE IV Last administered on 06/01/17 20:46; Start 06/01/17 at 20:00; Stop 06/02/17 at 07:26 ; Status DC Heparin Sodium (Porcine) (Heparin Sq) 5,000 unit Q8HRS SQ ; Start 06/01/17 at 22 :00 Lidocaine HCl 20 ml STK-MED ONCE .ROUTE Last administered on 06/02/17 07:54; Start 06/02/17 at 06:51; Stop 06/02/17 at 06:52; Status DC Bupivacaine HCl (Marcaine 0.5%) 50 ml STK-MED ONCE .ROUTE Last administered on 06/02/17t 07:54; Start 06/02/17 at 06:51; Stop 06/02/17 at 06:52; Status DC Povidone Iodine ( Betadine Oint) 28 rosetta STK-MED ONCE TP ; Start 06/02/17 at 06: 52; Stop 06/02/17 at 06:53; Status DC Dexamethasone Sodium Phosphate (Decadron) 4 mg STK-MED ONCE .ROUTE ; Start 06/02 at 06:52; Stop 06/02/17 at 06:53; Status DC Propofol 20 ml @ As Directed STK-MED ONCE IV ; Start 06/02/17 at 07:17; Stop at 07:18; Status DC Dexamethasone Sodium Phosphate (Decadron) 20 mg STK-MED ONCE .ROUTE ; Start 06/02/17 at 07:17; Stop 06/02/17 at 07:18; Status DC Lidocaine HCl (Lidocaine Pf 2% Vial) 5 ml STK-MED ONCE .ROUTE ; Start 06/02/17 at 07:17; Stop 06/02/17 at 07:18; Status DC Ondansetron HCl (Zofran) 4 mg STK-MED ONCE .ROUTE ; Start 06/02/17 at 07:17; Stop 06/02/17 at 07:18; Status DC Fentanyl Citrate (Fentanyl 2ml Vial) 100 mcg STK-MED ONCE .ROUTE ; Start at 07:17; Stop 06/02/17 at 07:18; Status DC Sodium Chloride 500 ml @ 250 mls/hr PACU PRN PRN IV TKO; Start 06/02/17 at 07: 30 Fluconazole (Diflucan) 100 mg DAILY PO ; Start 06/02/17 at 09:00 Lactobacillus Rhamnosus (Culturelle) 1 cap BID PO ; Start 06/02/17 at 09:00 Phenylephrine HCl (Ministerio-Synephrine Inj) 10 mg STK-MED ONCE .ROUTE ; Start at 07:56; Stop 06/02/17 at 07:57; Status DC Sodium Chloride (Sodium Chloride) 50 ml STK-MED ONCE IJ ; Start 06/02/17 at 07: 57; Stop 06/02/17 at 07:58; Status DC Sevoflurane (Ultane) 30 ml STK-MED ONCE IH ; Start 06/02/17 at 07:57; Stop 06/02 at 07:58; Status DC Allergies Allergies: Coded Allergies: No Known Drug Allergies (Unverified , 06/01/17) ROS General: No: Chills, Night Sweats, Fatigue, Malaise, Appetite, Other PSYCHOLOGICAL ROS: No: Anxiety, Behavioral Disorder, Concentration difficultie , Decreased libido, Depression, Disorientation, Hallucinations, Hostility, Irritablity, Memory difficulties, Mood Swings, Obsessive thoughts, Physical abuse, Sexual abuse, Sleep disturbances, Suicidal ideation, Other Eyes: No Blurry vision, No Decreased vision, No Double vision, No Dry eyes, No Excessive tearing, No Eye Pain, No Itchy Eyes, No Loss of vision, No Photophobia , No Scotomata, No Uses contacts, No Uses glasses, No Other HEENT: No: Heacaches, Visual Changes, Hearing change, Nasal congestion, Nasal discharge, Oral lesions, Sinus pain, Sore Throat, Epistaxis, Sneezing, Snoring, Tinnitus, Vertigo, Vocal changes, Other ALLERGY AND IMMUNOLOGY: No: Hives, Insect Bite Sensitivity, Itchy/Watery Eyes, Nasal Congestion, Post Nasal Drip, Seasonal Allergies, Other Hematological and Lymphatic: No: Bleeding Problems, Blood Clots, Blood Transfusions, Brusing, Night Sweats, Pallor, Swollen Lymph Nodes, Other ENDOCRINE: No: Breast Changes, Galactorrhea, Hair Pattern Changes, Hot Flashes , Malaise/lethargy, Mood Swings, Palpitations, Polydipsia/polyuria, Skin Changes , Temperature Intolerance, Unexpected Weight Changes, Other Respiratory: No: Cough, Hemoptysis, Orthopnea, Pleuritic Pain, Shortness of breath, SOB with excertion, Sputum Changes, Stridor, Tachypnea, Wheezing, Other Cardiovascular: No Chest Pain, No Palpitations, No Orthopnea, No Paroxysmal Noc. Dyspnea, No Edema, No Lt Headedness, No Other Gastrointestinal: No Nausea, No Vomiting, No Abdominal Pain, No Diarrhea, No Constipation, No Melena, No Hematochezia, No Other Genitourinary: No Dysuria, No Frequency, No Incontinence, No Hematuria, No Retention, No Discharge, No Urgency, No Pain, No Flank Pain, No Other, No , No , No , No , No , No , No Musculoskeletal: No Gait Disturbance, No Joint Pain, No Joint Stiffness, No Joint Swelling, No Muscle Pain, No Muscular Weakness, No Pain In:, No Swelling In:, No Other Neurological: No Behavorial Changes, No Bowel/Bladder ControlChng, No Confusion , No Dizziness, No Gait Disturbance, No Headaches, No Impaired Coord/balance, No Memory Loss, No Numbness/Tingling, No Seizures, No Speech Problems, No Tremors, No Visual Changes, No Weakness, No Other Skin: Yes Other (chronic ulceration plantar right foot 1st metatarsal), No Dry Skin, No Eczema, No Hair Changes, No Lumps, No Mole Changes, No Mottling, No Nail Changes, No Pruritus, No Rash, No Skin Lesion Changes, No Acne Physical Exam Physical Exam Lower extremity: Note full thickness ulceration plantar 1st metatarsal head right foot with flexor tendon exposed. +probe to bone. +serosanguinous drainage. +localized erythema. +edema to 1st ray. DP and PT 2/4. CFT is less than 3 sec to all digits. Sensation absent to sharp dull. Increased medial arch with plantarflexed 1st ray bilateral and noted fat pad atrophy to metatarsal heads 1-5 bilateral foot. General: Alert, Oriented X3, No acute distress Vitals VITALS Vital Signs Date Time Temp Pulse Resp B/P (MAP) Pulse Ox O2 Delivery O2 Flow Rate FiO2 06/02/17 07:11 97.2 78 15 156/82 96 Room Air 97.2 Labs Labs Laboratory Tests Test 06/01/17 13:12 06/01/17 13:40 06/01/17 20:54 06/02/17 03:40 Glucose (Fingerstick) 184 mg/dL (70-99) 152 mg/dL (70-99) White Blood Count 6.4 x10^3/uL (4.0-11.0) 6.4 x10^3/uL (4.0-11.0) Red Blood Count 4.16 x10^6/uL (4.30-5.70) 3.57 x10^6/uL (4.30-5.70) Hemoglobin 13.5 g/dL (13.0-17.5) 11.5 g/dL (13.0-17.5) Hematocrit 40.0 % (39.0-53.0) 34.1 % (39.0-53.0) Mean Corpuscular Volume 96 fL (79-100) 96 fL (79-100) Mean Corpuscular Hemoglobin 32 pg (25-35) 32 pg (25-35) Mean Corpuscular Hemoglobin Concent 34 g/dL (31-37) 34 g/dL (31-37) Red Cell Distribution Width 14.2 % (11.5-14.5) 14.4 % (11.5-14.5) Platelet Count 263 x10^3/uL (140-400) 204 x10^3/uL (140-400) Neutrophils (%) (Auto) 74 % (31-73) 66 % (31-73) Lymphocytes (%) (Auto) 13 % (24-48) 18 % (24-48) Monocytes (%) (Auto) 10 % (0-9) 11 % (0-9) Eosinophils (%) (Auto) 2 % (0-3) 5 % (0-3) Basophils (%) (Auto) 1 % (0-3) 1 % (0-3) Neutrophils # (Auto) 4.7 x10^3uL (1.8-7.7) 4.2 x10^3uL (1.8-7.7) Lymphocytes # (Auto) 0.8 x10^3/uL (1.0-4.8) 1.2 x10^3/uL (1.0-4.8) Monocytes # (Auto) 0.7 x10^3/uL (0.0-1.1) 0.7 x10^3/uL (0.0-1.1) Eosinophils # (Auto) 0.1 x10^3/uL (0.0-0.7) 0.3 x10^3/uL (0.0-0.7) Basophils # (Auto) 0.0 x10^3/uL (0.0-0.2) 0.0 x10^3/uL (0.0-0.2) Erythrocyte Sedimentation Rate 115 (0-15) Sodium Level 139 mmol/L (136-145) 132 mmol/L (136-145) Potassium Level 3.7 mmol/L (3.5-5.1) 3.6 mmol/L (3.5-5.1) Chloride Level 96 mmol/L (98-107) 95 mmol/L (98-107) Carbon Dioxide Level 32 mmol/L (21-32) 25 mmol/L (21-32) Anion Gap 11 (6-14) 12 (6-14) Blood Urea Nitrogen 28 mg/dL (8-26) 41 mg/dL (8-26) Creatinine 3.9 mg/dL (0.7-1.3) 4.9 mg/dL (0.7-1.3) Estimated GFR (Cockcroft-Gault) 16.2 12.4 BUN/Creatinine Ratio 7 (6-20) 8 (6-20) Glucose Level 192 mg/dL (70-99) 155 mg/dL (70-99) Hemoglobin A1c 7.1 % (4.8-5.6) Calcium Level 10.0 mg/dL (8.5-10.1) 8.7 mg/dL (8.5-10.1) Total Bilirubin 0.5 mg/dL (0.2-1.0) 0.5 mg/dL (0.2-1.0) Aspartate Amino Transf (AST/SGOT) 32 U/L (15-37) 25 U/L (15-37) Alanine Aminotransferase (ALT/SGPT) 30 U/L (16-63) 22 U/L (16-63) Alkaline Phosphatase 120 U/L (46-116) 89 U/L (46-116) C-Reactive Protein, Quantitative 60.0 mg/L (0-3.3) Total Protein 9.3 g/dL (6.4-8.2) 7.2 g/dL (6.4-8.2) Albumin 3.5 g/dL (3.4-5.0) 2.6 g/dL (3.4-5.0) Albumin/Globulin Ratio 0.6 (1.0-1.7) 0.6 (1.0-1.7) Laboratory Tests Test 06/01/17 13:12 06/01/17 13:40 06/01/17 20:54 06/02/17 03:40 Glucose (Fingerstick) 184 mg/dL (70-99) 152 mg/dL (70-99) White Blood Count 6.4 x10^3/uL (4.0-11.0) 6.4 x10^3/uL (4.0-11.0) Red Blood Count 4.16 x10^6/uL (4.30-5.70) 3.57 x10^6/uL (4.30-5.70) Hemoglobin 13.5 g/dL (13.0-17.5) 11.5 g/dL (13.0-17.5) Hematocrit 40.0 % (39.0-53.0) 34.1 % (39.0-53.0) Mean Corpuscular Volume 96 fL (79-100) 96 fL (79-100) Mean Corpuscular Hemoglobin 32 pg (25-35) 32 pg (25-35) Mean Corpuscular Hemoglobin Concent 34 g/dL (31-37) 34 g/dL (31-37) Red Cell Distribution Width 14.2 % (11.5-14.5) 14.4 % (11.5-14.5) Platelet Count 263 x10^3/uL (140-400) 204 x10^3/uL (140-400) Neutrophils (%) (Auto) 74 % (31-73) 66 % (31-73) Lymphocytes (%) (Auto) 13 % (24-48) 18 % (24-48) Monocytes (%) (Auto) 10 % (0-9) 11 % (0-9) Eosinophils (%) (Auto) 2 % (0-3) 5 % (0-3) Basophils (%) (Auto) 1 % (0-3) 1 % (0-3) Neutrophils # (Auto) 4.7 x10^3uL (1.8-7.7) 4.2 x10^3uL (1.8-7.7) Lymphocytes # (Auto) 0.8 x10^3/uL (1.0-4.8) 1.2 x10^3/uL (1.0-4.8) Monocytes # (Auto) 0.7 x10^3/uL (0.0-1.1) 0.7 x10^3/uL (0.0-1.1) Eosinophils # (Auto) 0.1 x10^3/uL (0.0-0.7) 0.3 x10^3/uL (0.0-0.7) Basophils # (Auto) 0.0 x10^3/uL (0.0-0.2) 0.0 x10^3/uL (0.0-0.2) Erythrocyte Sedimentation Rate 115 (0-15) Sodium Level 139 mmol/L (136-145) 132 mmol/L (136-145) Potassium Level 3.7 mmol/L (3.5-5.1) 3.6 mmol/L (3.5-5.1) Chloride Level 96 mmol/L (98-107) 95 mmol/L (98-107) Carbon Dioxide Level 32 mmol/L (21-32) 25 mmol/L (21-32) Anion Gap 11 (6-14) 12 (6-14) Blood Urea Nitrogen 28 mg/dL (8-26) 41 mg/dL (8-26) Creatinine 3.9 mg/dL (0.7-1.3) 4.9 mg/dL (0.7-1.3) Estimated GFR (Cockcroft-Gault) 16.2 12.4 BUN/Creatinine Ratio 7 (6-20) 8 (6-20) Glucose Level 192 mg/dL (70-99) 155 mg/dL (70-99) Hemoglobin A1c 7.1 % (4.8-5.6) Calcium Level 10.0 mg/dL (8.5-10.1) 8.7 mg/dL (8.5-10.1) Total Bilirubin 0.5 mg/dL (0.2-1.0) 0.5 mg/dL (0.2-1.0) Aspartate Amino Transf (AST/SGOT) 32 U/L (15-37) 25 U/L (15-37) Alanine Aminotransferase (ALT/SGPT) 30 U/L (16-63) 22 U/L (16-63) Alkaline Phosphatase 120 U/L (46-116) 89 U/L (46-116) C-Reactive Protein, Quantitative 60.0 mg/L (0-3.3) Total Protein 9.3 g/dL (6.4-8.2) 7.2 g/dL (6.4-8.2) Albumin 3.5 g/dL (3.4-5.0) 2.6 g/dL (3.4-5.0) Albumin/Globulin Ratio 0.6 (1.0-1.7) 0.6 (1.0-1.7) Images Images Non invasive arterial doppler 06/01/17: IMPRESSION: Bilateral lower extremity arterial calcified plaque without evidence of hemodynamically significant stenosis. MRI 05/26/17: IMPRESSION: 1. Skin thickening and skin ulceration over the plantar foot with extension deep to involve the sesamoid bones of the first MTP joint. There is abnormal signal within the sesamoid bones which could be related to sesamoiditis or chronic osteomyelitis. 2. Mild edema edema within the marrow of the first proximal phalanx and first metatarsal head without significant T1 signal loss. This is likely reactive. 3. Diffuse edema within the plantar foot musculature, nonspecific. Consider infectious myositis. Vasogenic or neurogenic edema or other potential causes. No evidence of abscess. Assessment/Plan Assessment/Plan 52 year old male with +osteomyelitis right 1st ray with pes cavus, plantarflexed 1st ray, fat pad atrophy, roy grade 3 ulceration. -ID on consult appreciate recs for IV antibiotics -Recommend and discussed with patient partial 1st ray amputation right foot. -Discussed risks, benefits and complications to include delayed healing, non healing, need for further surgery, transfer lesions, DVT, PE, chronic pain, infection - No guarantees made. All questions answered. Patient signed consent freely and put in chart -Recommend non weightbearing to right lower extremity and bathroom priveleges only -Will consult social work to place patient in LTAC x 2-3 weeks for IV Antibiotics, hemodialysis. -Elevate right lower extremity -Will take post operative xrays in PACU. RENÉ CASTRO DPM Jun 02, 2017 08:51
--- NOTE | 2017-06-02 08:55 | PDOC4 ---
OPERATIVE NOTE: Surgeon: Therese Pre operative DX: osteomyelitis right 1st ray Post operative DX: Same Procedure: Partial 1st ray amputation right foot Anesthesia: LMA with Nelson block right foot Hemostasis: Right ankle tourniquet at 250mmHG EBL 5mL Materials: 3-0 vicryl, 3-0 nylon, 4-0 nylon Intraoperative findings: Full thickness ulceration plantar 1st metatarsal with exposed sesamoids bhatia discoloration. Remaining proximal 1st metatarsal intact and within normal limits. no proximal sinus tracts Patient tolerated anesthesia and procedure well transferred to PACU with VSS And VSI to right foot. Continue IV antibiotics Consult Social work for placement for IV antibiotics and HD. Bathroom priveleges only non weightbearing right foot RENÉ CASTRO DPM Jun 02, 2017 08:55
--- NOTE | 2017-06-02 09:39 | OP ---
DATE OF SURGERY: 06/02/2017 PREOPERATIVE DIAGNOSIS: Osteomyelitis, right foot. POSTOPERATIVE DIAGNOSIS: Osteomyelitis, right foot. PROCEDURE: Partial first ray amputation, right foot. SURGEON: Elliot Saleh DPM. ANESTHESIA: LMA with Nelson block to the right foot. HEMOSTASIS: Right ankle tourniquet at 250 mmHg. INDICATIONS: The patient is a 52-year-old male who has history of worsening plantar first metatarsal head. He has a past medical history significant for diabetes, peripheral neuropathy, noncompliance and end-stage renal disease, on hemodialysis Monday, and Monday, admitted to [facility] for IV antibiotics and treatment of osteomyelitis. MRI was noted to have positive osteomyelitis to the sesamoids and suspicious for the proximal phalanx and the metatarsal head. The patient with a foot structure and plantar-flexed first ray with fat pad atrophy. He has been noncompliant with nonweightbearing as he continued to go to dialysis and ran other errands as he lives on his own and does not have transportation available. Discussed with the patient the risks, benefits and alternate treatment options to include 6 weeks of IV antibiotics and continued wound care versus partial first ray amputation. The patient wished to proceed with partial first ray amputation. Discussed the risks, benefits and complications to include delayed healing, nonhealing, need for further surgery, infection, DVT, pulmonary embolism, transfer lesions, chronic pain and infection. All questions were answered. No guarantees were made. The patient signed consent freely and put in chart. Note, on labs the ESR was 115 and CRP was 60. Hemoglobin A1c 7.1. DESCRIPTION OF PROCEDURE: The patient transported to the operating room via cart and placed on the operating room table in supine position. Final verification of the surgery, the patient and limb to be performed was confirmed. LMA was administered per anesthesia and a Nelson block was administered to the right foot consisting of a 1:1 mixture of 1% lidocaine plain and 0.5% Marcaine plain. The right foot was then prepped and draped in the usual aseptic manner. Esmarch bandage was used to exsanguinate the right foot. A well-padded tourniquet had been placed over the right ankle and at this point, the tourniquet was inflated to 250 mmHg. Attention was directed to the plantar first metatarsal, where a full-thickness ulceration was noted. An ellipsing incision was made to ellipse out the ulceration, plantar first metatarsal and carried over the toe and dorsal first metatarsal. This was deepened to the joint capsule, and the sagittal saw was used to resect the head of the first metatarsal as well as remove the sesamoids and the hallux. It was noted at this time that the sesamoids in plantar metatarsal head were bhatia discoloration and remaining metatarsal was within normal limits, with no proximal sinus tracts noted. The small vessels were cauterized. All devitalized tissue was debrided from the wound bed and the wound was then copiously irrigated with 3 liter bag sterile saline. The skin was reapproximated with 3-0 Vicryl, 3-0 nylon and 4-0 nylon. The wound was then dressed with Betadine-soaked Adaptic gauze, 4 x 4s, Kerlix, abdominal pad and an Gunnar bandage. The patient is to keep the dressing clean, dry and intact. I will change the bandage bedside. I am concerned for continued noncompliance. Recommend nonweightbearing to the right lower extremity while the patient is healing. Recommend consult to social work to determine if the patient can be placed for short stands of IV antibiotics per Infectious Disease recommendations and to continue with hemodialysis 3 times a week. He is to have hemodialysis tomorrow. I know that Renal has been consulted. All orders are in chart. ELLIOT SALEH DPM DR: Carson JOB#: [id number] / [id number]
--- NOTE | 2017-06-02 09:52 | RAD ---
Right foot, 3 views, 06/02/2017: History: Postop evaluation There has been recent amputation the great toe at the level of the distal first metatarsal. There are gas collections in the adjacent soft tissues at the surgical site. Deformity of the proximal fifth metatarsal shaft is compatible with an old healed fracture. No other fracture or destructive bony lesion is seen. There are mild degenerative changes at the midfoot level and at the ankle joint. Moderate arterial calcifications are noted. IMPRESSION: Recent amputation of the great toe at the distal first metatarsal level.
[2017-06-02] MEDS ORDERED: ARIP5TAB13 PO (10:16)
[2017-06-02] MEDS ORDERED: FURO-68 PO (10:16)
[2017-06-02] MEDS ORDERED: ATOR40TA59 PO (10:16)
[2017-06-02] MEDS ORDERED: CARV3.122 PO (10:16)
[2017-06-02] MEDS ORDERED: TRAZ100T12 PO (10:16)
[2017-06-02] MEDS ORDERED: GABA-585 PO (10:16)
[2017-06-02] MEDS ORDERED: BUPR150T6 PO (10:16)
[2017-06-02] MEDS ORDERED: INSU100I17 SQ (10:17)
[2017-06-02] MEDS ORDERED: FOLI0.8T3 PO (10:17)
[2017-06-02] MEDS: FLUCONAZOLE 100 MG TABLET. PO SCH (10:48)
[2017-06-02] MEDS: VANCOMYCIN PER PHARMACY MC PRN (11:00)
[2017-06-02] MEDS: HEPARIN PF for SUB-Q USE 5,000 UNIT/0.5 ML VIAL. SQ SCH ×2 (14:00→20:18)
[2017-06-02] MEDS: HYDROcodone/APAP 5/325MG 1 TAB TABLET PO PRN ×2 (14:04→20:12)
--- NOTE | 2017-06-02 15:14 | PDOC2 ---
CONSULT Date of Consult Date of Consult DATE: 06/02/17 TIME: 15:11 Reason for Consult Reason for Consult: ESRD Referring Physician Referring Physician: Dr Hernadez Identification/Chief Complaint Chief Complaint Foot wound Problems: Source Source: Chart review, Patient History of Present Illness Reason for Visit: as dictated Past Medical History Cardiovascular: No pertinent hx Pulmonary: COPD GI: No pertinent hx Renal/: Chronic renal failure Endocrine: Diabetes Family History Family History: Alcohol Abuse, Diabetes Social History <1 pack per day ALCOHOL: heavy Current Medications Current Medications Current Medications Sodium Chloride (Normal Saline Flush) 3 ml PRN DAILY PRN IV AFTER MEDS AND BLOOD DRAWS; Start 06/01/17 at 13:15 Ondansetron HCl (Zofran) 4 mg PRN Q6HRS PRN IV NAUSEA/VOMITING; Start 06/02/17 at 07:00; Stop 06/02/17 at 10:48; Status DC Fentanyl Citrate (Fentanyl 2ml Vial) 25 mcg PRN Q5MIN PRN IV MILD PAIN; Start 06/02/17 at 07:00; Stop 06/02/17 at 10:49; Status DC Fentanyl Citrate (Fentanyl 2ml Vial) 50 mcg PRN Q5MIN PRN IV MODERATE PAIN; Start 06/02/17 at 07:00; Stop 06/02/17 at 10:49; Status DC Morphine Sulfate 1 mg PRN Q10MIN PRN IV SEVERE PAIN; Start 06/02/17 at 07:00; Stop 06/02/17 at 10:49; Status DC Ringer's Solution 1,000 ml @ 30 mls/hr Q24H IV ; Start 06/02/17 at 07:00; Stop 06/02/17 at 10:21; Status DC Lidocaine HCl (Xylocaine-Mpf 1% Vial) 2 ml PRN 1X PRN ID IV START; Start at 07:00; Stop 06/02/17 at 10:49; Status DC Hydromorphone HCl (Dilaudid) 0.5 mg PRN Q10MIN PRN IV SEV PAIN, Second choice; Start 06/02/17 at 07:00; Stop 06/02/17 at 10:49; Status DC Prochlorperazine Edisylate (Compazine) 5 mg PACU PRN PRN IV NAUSEA, MRX1; Start 06/02/17 at 07:00; Stop 06/02/17 at 10:49; Status DC Piperacillin Sod/ Tazobactam Sod 2.25 gm/Dextrose 50 ml @ 100 mls/hr Q8HRS IV ; Start 06/01/17 at 22:00; Status Cancel Clindamycin Phosphate 50 ml @ 100 mls/hr Q8H IV Last administered on 02:19; Start 06/01/17 at 19:00; Stop 06/02/17 at 07:26; Status DC Vancomycin HCl (Vanco Per Pharmacy) 1 each PRN DAILY PRN MC SEE COMMENTS Last administered on 06/02/17 11:00; Start 06/01/17 at 19:00 Micafungin Sodium 100 mg/Dextrose 100 ml @ 100 mls/hr 1X ONCE IV ; Start 06/01 at 19:00; Stop 06/01/17 at 19:59; Status Cancel Piperacillin Sod/ Tazobactam Sod (Zosyn) 2.25 gm Q8HRS IVP Last administered on 06/02/17 14:03; Start 06/01/17 at 22:00 Vancomycin HCl 2 gm/Dextrose/ Sodium Chloride 500 ml @ 250 mls/hr 1X ONCE IV Last administered on 06/01/17 20:46; Start 06/01/17 at 20:00; Stop 06/01/17 at 21:59; Status DC Micafungin Sodium 100 mg/Sodium Chloride 100 ml @ 100 mls/hr 1X ONCE IV Last administered on 06/01/17 20:46; Start 06/01/17 at 20:00; Stop 06/02/17 at 07:26 ; Status DC Heparin Sodium (Porcine) (Heparin Sq) 5,000 unit Q8HRS SQ ; Start 06/01/17 at 22 :00 Lidocaine HCl 20 ml STK-MED ONCE .ROUTE Last administered on 06/02/17 07:54; Start 06/02/17 at 06:51; Stop 06/02/17 at 06:52; Status DC Bupivacaine HCl (Marcaine 0.5%) 50 ml STK-MED ONCE .ROUTE Last administered on 06/02/17 07:54; Start 06/02/17 at 06:51; Stop 06/02/17 at 06:52; Status DC Povidone Iodine ( Betadine Oint) 28 rosetta STK-MED ONCE TP ; Start 06/02/17 at 06: 52; Stop 06/02/17 at 06:53; Status DC Dexamethasone Sodium Phosphate (Decadron) 4 mg STK-MED ONCE .ROUTE ; Start 06/02 at 06:52; Stop 06/02/17 at 06:53; Status DC Propofol 20 ml @ As Directed STK-MED ONCE IV ; Start 06/02/17 at 07:17; Stop at 07:18; Status DC Dexamethasone Sodium Phosphate (Decadron) 20 mg STK-MED ONCE .ROUTE ; Start 06/02/17 at 07:17; Stop 06/02/17 at 07:18; Status DC Lidocaine HCl (Lidocaine Pf 2% Vial) 5 ml STK-MED ONCE .ROUTE ; Start 06/02/17 at 07:17; Stop 06/02/17 at 07:18; Status DC Ondansetron HCl (Zofran) 4 mg STK-MED ONCE .ROUTE ; Start 06/02/17 at 07:17; Stop 06/02/17 at 07:18; Status DC Fentanyl Citrate (Fentanyl 2ml Vial) 100 mcg STK-MED ONCE .ROUTE ; Start at 07:17; Stop 06/02/17 at 07:18; Status DC Sodium Chloride 500 ml @ 250 mls/hr PACU PRN PRN IV TKO Last administered on 06/02/17t 08:40; Start 06/02/17 at 07:30; Stop 06/02/17 at 10:49; Status DC Fluconazole (Diflucan) 100 mg DAILY PO Last administered on 06/02/17t 10:48; Start 06/02/17 at 09:00 Lactobacillus Rhamnosus (Culturelle) 1 cap BID PO ; Start 06/02/17 at 09:00 Phenylephrine HCl (Ministerio-Synephrine Inj) 10 mg STK-MED ONCE .ROUTE ; Start at 07:56; Stop 06/02/17 at 07:57; Status DC Sodium Chloride (Sodium Chloride) 50 ml STK-MED ONCE IJ ; Start 06/02/17 at 07: 57; Stop 06/02/17 at 07:58; Status DC Sevoflurane (Ultane) 30 ml STK-MED ONCE IH ; Start 06/02/17 at 07:57; Stop 06/02 at 07:58; Status DC Sodium Chloride 1,000 ml @ 100 mls/hr Q10H IV ; Start 06/02/17 at 08:00; Stop 06/02/17 at 10:21; Status DC Vancomycin HCl 1 each 1X ONCE MC ; Start 06/03/17 at 06:00; Stop 06/03/17 at 06 :01 Acetaminophen/ Hydrocodone Bitart (Lortab 5/325) 1 tab PRN Q4HRS PRN PO MODERATE PAIN Last administered on 06/02/17t 14:04; Start 06/02/17 at 11:45 Active Scripts Active Reported Abilify (Aripiprazole) 5 Mg Tablet 5 Mg PO DAILY Carvedilol 3.125 Mg Tablet 3.125 Mg PO BIDWMEALS Gabapentin 100 Mg Capsule 100 Mg PO TID Lasix (Furosemide) 40 Mg Tablet 1 Tab PO DAILY Allergies Allergies: Coded Allergies: No Known Drug Allergies (Unverified , 06/01/17) ROS Review of System GEN: no Fevers no Chills EYES: no Visual Complaints ENT: no EN Drainage no Hearing deficiets CVS: no Orthopnea no CP RESP: no SOB no BERUMEN GI: + Nausea + Vomiting : no Dysuria no Urgency HEME: no easy bruising no Palp Ly Nodes NEURO no Focal Weakness no Sz PSYCH: no Suicidal Ideation no Depression SKIN: no Rashes + foot wound ENDO: no Polyuria or Polydipsia no Hot/Cold Intolerance MU SK: occ Arthraigia no Myalgia Physical Exam Physical Exam General Appearance: Awake Alert Oriented x 3 In no Distress Eyes: VIsion Unchanged Conjunctiva Normal EN: No EN Drainage Mucous Memb. moist Neck: no JVD no JVP Supple no Thyromegaly CVS: S1 S2 soft Murmur No Gallop No Rub no Edema Resp: no Rales no Rhonchi no Acc. Muscle use GI: BAS +ve NO Bruit Non Tender Non Distended : no CVA tenderness; no Suprapubic Tenderness SKIN: no Rashes Breast Exam deferred; Rt Foot in bandage and not opened Mu.Sk: Adequate ROM no Muscle Atrophy Heme: Unable to palpate Obvious LAD no Splenomegaly NEURO: Good Strength and Tone Cranial Nerves II - XII grossly intact Psych: not Depressed no Active hallucination Vital Signs Vital Signs Date Time Temp Pulse Resp B/P (MAP) Pulse Ox O2 Delivery O2 Flow Rate FiO2 06/02/17 15:04 20 97 Room Air 06/02/17 15:02 98.5 74 156/82 (106) 98.5 06/02/17 08:55 10 Assessment & Plan ESRD: Current FLuid and E-lyte status does not necessitate emergent need for Dialysis. Will re-evaluate for Dialysis in am and continue on TTSat schedule. Anemia: Epogen once hgb < 11 Transfuse with next HD as needed. HTN: Current BP meds reviewed. See orders for changes. Bone & Mineral: follow pohs and alter binder regimen HypoAlbuminemia - suspect ude to foot wound Discussed Plan of Care and prognosis etc. at length with family. Labs Labs Laboratory Tests Test 06/01/17 13:12 06/01/17 13:40 06/01/17 20:54 06/02/17 03:40 Glucose (Fingerstick) 184 mg/dL (70-99) 152 mg/dL (70-99) White Blood Count 6.4 x10^3/uL (4.0-11.0) 6.4 x10^3/uL (4.0-11.0) Red Blood Count 4.16 x10^6/uL (4.30-5.70) 3.57 x10^6/uL (4.30-5.70) Hemoglobin 13.5 g/dL (13.0-17.5) 11.5 g/dL (13.0-17.5) Hematocrit 40.0 % (39.0-53.0) 34.1 % (39.0-53.0) Mean Corpuscular Volume 96 fL (79-100) 96 fL (79-100) Mean Corpuscular Hemoglobin 32 pg (25-35) 32 pg (25-35) Mean Corpuscular Hemoglobin Concent 34 g/dL (31-37) 34 g/dL (31-37) Red Cell Distribution Width 14.2 % (11.5-14.5) 14.4 % (11.5-14.5) Platelet Count 263 x10^3/uL (140-400) 204 x10^3/uL (140-400) Neutrophils (%) (Auto) 74 % (31-73) 66 % (31-73) Lymphocytes (%) (Auto) 13 % (24-48) 18 % (24-48) Monocytes (%) (Auto) 10 % (0-9) 11 % (0-9) Eosinophils (%) (Auto) 2 % (0-3) 5 % (0-3) Basophils (%) (Auto) 1 % (0-3) 1 % (0-3) Neutrophils # (Auto) 4.7 x10^3uL (1.8-7.7) 4.2 x10^3uL (1.8-7.7) Lymphocytes # (Auto) 0.8 x10^3/uL (1.0-4.8) 1.2 x10^3/uL (1.0-4.8) Monocytes # (Auto) 0.7 x10^3/uL (0.0-1.1) 0.7 x10^3/uL (0.0-1.1) Eosinophils # (Auto) 0.1 x10^3/uL (0.0-0.7) 0.3 x10^3/uL (0.0-0.7) Basophils # (Auto) 0.0 x10^3/uL (0.0-0.2) 0.0 x10^3/uL (0.0-0.2) Erythrocyte Sedimentation Rate 115 (0-15) Sodium Level 139 mmol/L (136-145) 132 mmol/L (136-145) Potassium Level 3.7 mmol/L (3.5-5.1) 3.6 mmol/L (3.5-5.1) Chloride Level 96 mmol/L (98-107) 95 mmol/L (98-107) Carbon Dioxide Level 32 mmol/L (21-32) 25 mmol/L (21-32) Anion Gap 11 (6-14) 12 (6-14) Blood Urea Nitrogen 28 mg/dL (8-26) 41 mg/dL (8-26) Creatinine 3.9 mg/dL (0.7-1.3) 4.9 mg/dL (0.7-1.3) Estimated GFR (Cockcroft-Gault) 16.2 12.4 BUN/Creatinine Ratio 7 (6-20) 8 (6-20) Glucose Level 192 mg/dL (70-99) 155 mg/dL (70-99) Hemoglobin A1c 7.1 % (4.8-5.6) Calcium Level 10.0 mg/dL (8.5-10.1) 8.7 mg/dL (8.5-10.1) Total Bilirubin 0.5 mg/dL (0.2-1.0) 0.5 mg/dL (0.2-1.0) Aspartate Amino Transf (AST/SGOT) 32 U/L (15-37) 25 U/L (15-37) Alanine Aminotransferase (ALT/SGPT) 30 U/L (16-63) 22 U/L (16-63) Alkaline Phosphatase 120 U/L (46-116) 89 U/L (46-116) C-Reactive Protein, Quantitative 60.0 mg/L (0-3.3) Total Protein 9.3 g/dL (6.4-8.2) 7.2 g/dL (6.4-8.2) Albumin 3.5 g/dL (3.4-5.0) 2.6 g/dL (3.4-5.0) Albumin/Globulin Ratio 0.6 (1.0-1.7) 0.6 (1.0-1.7) Test 06/02/17 08:51 06/02/17 10:52 Glucose (Fingerstick) 154 mg/dL (70-99) 179 mg/dL (70-99) Laboratory Tests Test 06/01/17 20:54 06/02/17 03:40 06/02/17 08:51 06/02/17 10:52 Glucose (Fingerstick) 152 mg/dL (70-99) 154 mg/dL (70-99) 179 mg/dL (70-99) White Blood Count 6.4 x10^3/uL (4.0-11.0) Red Blood Count 3.57 x10^6/uL (4.30-5.70) Hemoglobin 11.5 g/dL (13.0-17.5) Hematocrit 34.1 % (39.0-53.0) Mean Corpuscular Volume 96 fL (79-100) Mean Corpuscular Hemoglobin 32 pg (25-35) Mean Corpuscular Hemoglobin Concent 34 g/dL (31-37) Red Cell Distribution Width 14.4 % (11.5-14.5) Platelet Count 204 x10^3/uL (140-400) Neutrophils (%) (Auto) 66 % (31-73) Lymphocytes (%) (Auto) 18 % (24-48) Monocytes (%) (Auto) 11 % (0-9) Eosinophils (%) (Auto) 5 % (0-3) Basophils (%) (Auto) 1 % (0-3) Neutrophils # (Auto) 4.2 x10^3uL (1.8-7.7) Lymphocytes # (Auto) 1.2 x10^3/uL (1.0-4.8) Monocytes # (Auto) 0.7 x10^3/uL (0.0-1.1) Eosinophils # (Auto) 0.3 x10^3/uL (0.0-0.7) Basophils # (Auto) 0.0 x10^3/uL (0.0-0.2) Sodium Level 132 mmol/L (136-145) Potassium Level 3.6 mmol/L (3.5-5.1) Chloride Level 95 mmol/L (98-107) Carbon Dioxide Level 25 mmol/L (21-32) Anion Gap 12 (6-14) Blood Urea Nitrogen 41 mg/dL (8-26) Creatinine 4.9 mg/dL (0.7-1.3) Estimated GFR (Cockcroft-Gault) 12.4 BUN/Creatinine Ratio 8 (6-20) Glucose Level 155 mg/dL (70-99) Calcium Level 8.7 mg/dL (8.5-10.1) Total Bilirubin 0.5 mg/dL (0.2-1.0) Aspartate Amino Transf (AST/SGOT) 25 U/L (15-37) Alanine Aminotransferase (ALT/SGPT) 22 U/L (16-63) Alkaline Phosphatase 89 U/L (46-116) Total Protein 7.2 g/dL (6.4-8.2) Albumin 2.6 g/dL (3.4-5.0) Albumin/Globulin Ratio 0.6 (1.0-1.7) VERÓNICA MEDINA MD Jun 02, 2017 15:14
--- NOTE | 2017-06-02 16:41 | PDOC ---
PROGRESS NOTES Chief Complaint Chief Complaint 1. ADVANCED DIABETIC FOOT ULCER 2. CELLULITIS 3. Tobacco abuse 4. ESRD on dialysis 5. mod alcohol abuse 6. possible osteomyelitis 7. dietary noncompliance History of Present Illness History of Present Illness Pt seen and examined VSS NOEMI RN Reviewed pictures Vitals Vitals Vital Signs Date Time Temp Pulse Resp B/P (MAP) Pulse Ox O2 Delivery O2 Flow Rate FiO2 06/02/17 15:04 20 97 Room Air 06/02/17 15:02 98.5 74 156/82 (106) 98.5 06/02/17 08:55 10 Physical Exam General: Alert, Oriented X3, No acute distress Heart: Regular rate, Normal S1, Normal S2 Lungs: Clear Abdomen: Normal bowel sounds, Soft Extremities: No cyanosis Skin: Other (MARKED LESION DISTAL PLANTAR ASPECT) Labs LABS Laboratory Tests Test 06/01/17 20:54 06/02/17 03:40 06/02/17 08:51 06/02/17 10:52 Glucose (Fingerstick) 152 mg/dL (70-99) 154 mg/dL (70-99) 179 mg/dL (70-99) White Blood Count 6.4 x10^3/uL (4.0-11.0) Red Blood Count 3.57 x10^6/uL (4.30-5.70) Hemoglobin 11.5 g/dL (13.0-17.5) Hematocrit 34.1 % (39.0-53.0) Mean Corpuscular Volume 96 fL (79-100) Mean Corpuscular Hemoglobin 32 pg (25-35) Mean Corpuscular Hemoglobin Concent 34 g/dL (31-37) Red Cell Distribution Width 14.4 % (11.5-14.5) Platelet Count 204 x10^3/uL (140-400) Neutrophils (%) (Auto) 66 % (31-73) Lymphocytes (%) (Auto) 18 % (24-48) Monocytes (%) (Auto) 11 % (0-9) Eosinophils (%) (Auto) 5 % (0-3) Basophils (%) (Auto) 1 % (0-3) Neutrophils # (Auto) 4.2 x10^3uL (1.8-7.7) Lymphocytes # (Auto) 1.2 x10^3/uL (1.0-4.8) Monocytes # (Auto) 0.7 x10^3/uL (0.0-1.1) Eosinophils # (Auto) 0.3 x10^3/uL (0.0-0.7) Basophils # (Auto) 0.0 x10^3/uL (0.0-0.2) Sodium Level 132 mmol/L (136-145) Potassium Level 3.6 mmol/L (3.5-5.1) Chloride Level 95 mmol/L (98-107) Carbon Dioxide Level 25 mmol/L (21-32) Anion Gap 12 (6-14) Blood Urea Nitrogen 41 mg/dL (8-26) Creatinine 4.9 mg/dL (0.7-1.3) Estimated GFR (Cockcroft-Gault) 12.4 BUN/Creatinine Ratio 8 (6-20) Glucose Level 155 mg/dL (70-99) Calcium Level 8.7 mg/dL (8.5-10.1) Total Bilirubin 0.5 mg/dL (0.2-1.0) Aspartate Amino Transf (AST/SGOT) 25 U/L (15-37) Alanine Aminotransferase (ALT/SGPT) 22 U/L (16-63) Alkaline Phosphatase 89 U/L (46-116) Total Protein 7.2 g/dL (6.4-8.2) Albumin 2.6 g/dL (3.4-5.0) Albumin/Globulin Ratio 0.6 (1.0-1.7) Review of Systems Review of Systems co pain co weakness Assessment and Plan Assessmemt and Plan 1. ADVANCED DIABETIC FOOT ULCER 2. CELLULITIS 3. Tobacco abuse 4. ESRD on dialysis 5. Mod alcohol abuse 6. Possible osteomyelitis 7. Dietary noncompliance Plan Wound care consult Hemodialysis I.V. antibiotics Consult ID DR HOLCOMB FOR SURGERY Lovenox dvt prophylaxis Consult nephrology Problems: Comment Review of Relevant I have reviewed the following items sabina (where applicable) has been applied. Labs Laboratory Tests Test 06/01/17 13:12 06/01/17 13:40 06/01/17 20:54 06/02/17 03:40 Glucose (Fingerstick) 184 mg/dL (70-99) 152 mg/dL (70-99) White Blood Count 6.4 x10^3/uL (4.0-11.0) 6.4 x10^3/uL (4.0-11.0) Red Blood Count 4.16 x10^6/uL (4.30-5.70) 3.57 x10^6/uL (4.30-5.70) Hemoglobin 13.5 g/dL (13.0-17.5) 11.5 g/dL (13.0-17.5) Hematocrit 40.0 % (39.0-53.0) 34.1 % (39.0-53.0) Mean Corpuscular Volume 96 fL (79-100) 96 fL (79-100) Mean Corpuscular Hemoglobin 32 pg (25-35) 32 pg (25-35) Mean Corpuscular Hemoglobin Concent 34 g/dL (31-37) 34 g/dL (31-37) Red Cell Distribution Width 14.2 % (11.5-14.5) 14.4 % (11.5-14.5) Platelet Count 263 x10^3/uL (140-400) 204 x10^3/uL (140-400) Neutrophils (%) (Auto) 74 % (31-73) 66 % (31-73) Lymphocytes (%) (Auto) 13 % (24-48) 18 % (24-48) Monocytes (%) (Auto) 10 % (0-9) 11 % (0-9) Eosinophils (%) (Auto) 2 % (0-3) 5 % (0-3) Basophils (%) (Auto) 1 % (0-3) 1 % (0-3) Neutrophils # (Auto) 4.7 x10^3uL (1.8-7.7) 4.2 x10^3uL (1.8-7.7) Lymphocytes # (Auto) 0.8 x10^3/uL (1.0-4.8) 1.2 x10^3/uL (1.0-4.8) Monocytes # (Auto) 0.7 x10^3/uL (0.0-1.1) 0.7 x10^3/uL (0.0-1.1) Eosinophils # (Auto) 0.1 x10^3/uL (0.0-0.7) 0.3 x10^3/uL (0.0-0.7) Basophils # (Auto) 0.0 x10^3/uL (0.0-0.2) 0.0 x10^3/uL (0.0-0.2) Erythrocyte Sedimentation Rate 115 (0-15) Sodium Level 139 mmol/L (136-145) 132 mmol/L (136-145) Potassium Level 3.7 mmol/L (3.5-5.1) 3.6 mmol/L (3.5-5.1) Chloride Level 96 mmol/L (98-107) 95 mmol/L (98-107) Carbon Dioxide Level 32 mmol/L (21-32) 25 mmol/L (21-32) Anion Gap 11 (6-14) 12 (6-14) Blood Urea Nitrogen 28 mg/dL (8-26) 41 mg/dL (8-26) Creatinine 3.9 mg/dL (0.7-1.3) 4.9 mg/dL (0.7-1.3) Estimated GFR (Cockcroft-Gault) 16.2 12.4 BUN/Creatinine Ratio 7 (6-20) 8 (6-20) Glucose Level 192 mg/dL (70-99) 155 mg/dL (70-99) Hemoglobin A1c 7.1 % (4.8-5.6) Calcium Level 10.0 mg/dL (8.5-10.1) 8.7 mg/dL (8.5-10.1) Total Bilirubin 0.5 mg/dL (0.2-1.0) 0.5 mg/dL (0.2-1.0) Aspartate Amino Transf (AST/SGOT) 32 U/L (15-37) 25 U/L (15-37) Alanine Aminotransferase (ALT/SGPT) 30 U/L (16-63) 22 U/L (16-63) Alkaline Phosphatase 120 U/L (46-116) 89 U/L (46-116) C-Reactive Protein, Quantitative 60.0 mg/L (0-3.3) Total Protein 9.3 g/dL (6.4-8.2) 7.2 g/dL (6.4-8.2) Albumin 3.5 g/dL (3.4-5.0) 2.6 g/dL (3.4-5.0) Albumin/Globulin Ratio 0.6 (1.0-1.7) 0.6 (1.0-1.7) Test 06/02/17 08:51 06/02/17 10:52 Glucose (Fingerstick) 154 mg/dL (70-99) 179 mg/dL (70-99) Laboratory Tests Test 06/01/17 20:54 06/02/17 03:40 06/02/17 08:51 06/02/17 10:52 Glucose (Fingerstick) 152 mg/dL (70-99) 154 mg/dL (70-99) 179 mg/dL (70-99) White Blood Count 6.4 x10^3/uL (4.0-11.0) Red Blood Count 3.57 x10^6/uL (4.30-5.70) Hemoglobin 11.5 g/dL (13.0-17.5) Hematocrit 34.1 % (39.0-53.0) Mean Corpuscular Volume 96 fL (79-100) Mean Corpuscular Hemoglobin 32 pg (25-35) Mean Corpuscular Hemoglobin Concent 34 g/dL (31-37) Red Cell Distribution Width 14.4 % (11.5-14.5) Platelet Count 204 x10^3/uL (140-400) Neutrophils (%) (Auto) 66 % (31-73) Lymphocytes (%) (Auto) 18 % (24-48) Monocytes (%) (Auto) 11 % (0-9) Eosinophils (%) (Auto) 5 % (0-3) Basophils (%) (Auto) 1 % (0-3) Neutrophils # (Auto) 4.2 x10^3uL (1.8-7.7) Lymphocytes # (Auto) 1.2 x10^3/uL (1.0-4.8) Monocytes # (Auto) 0.7 x10^3/uL (0.0-1.1) Eosinophils # (Auto) 0.3 x10^3/uL (0.0-0.7) Basophils # (Auto) 0.0 x10^3/uL (0.0-0.2) Sodium Level 132 mmol/L (136-145) Potassium Level 3.6 mmol/L (3.5-5.1) Chloride Level 95 mmol/L (98-107) Carbon Dioxide Level 25 mmol/L (21-32) Anion Gap 12 (6-14) Blood Urea Nitrogen 41 mg/dL (8-26) Creatinine 4.9 mg/dL (0.7-1.3) Estimated GFR (Cockcroft-Gault) 12.4 BUN/Creatinine Ratio 8 (6-20) Glucose Level 155 mg/dL (70-99) Calcium Level 8.7 mg/dL (8.5-10.1) Total Bilirubin 0.5 mg/dL (0.2-1.0) Aspartate Amino Transf (AST/SGOT) 25 U/L (15-37) Alanine Aminotransferase (ALT/SGPT) 22 U/L (16-63) Alkaline Phosphatase 89 U/L (46-116) Total Protein 7.2 g/dL (6.4-8.2) Albumin 2.6 g/dL (3.4-5.0) Albumin/Globulin Ratio 0.6 (1.0-1.7) Medications Current Medications Sodium Chloride (Normal Saline Flush) 3 ml PRN DAILY PRN IV AFTER MEDS AND BLOOD DRAWS; Start 06/01/17 at 13:15 Ondansetron HCl (Zofran) 4 mg PRN Q6HRS PRN IV NAUSEA/VOMITING; Start 06/02/17 at 07:00; Stop 06/02/17 at 10:48; Status DC Fentanyl Citrate (Fentanyl 2ml Vial) 25 mcg PRN Q5MIN PRN IV MILD PAIN; Start 06/02/17 at 07:00; Stop 06/02/17 at 10:49; Status DC Fentanyl Citrate (Fentanyl 2ml Vial) 50 mcg PRN Q5MIN PRN IV MODERATE PAIN; Start 06/02/17 at 07:00; Stop 06/02/17 at 10:49; Status DC Morphine Sulfate 1 mg PRN Q10MIN PRN IV SEVERE PAIN; Start 06/02/17 at 07:00; Stop 06/02/17 at 10:49; Status DC Ringer's Solution 1,000 ml @ 30 mls/hr Q24H IV ; Start 06/02/17 at 07:00; Stop 06/02/17 at 10:21; Status DC Lidocaine HCl (Xylocaine-Mpf 1% Vial) 2 ml PRN 1X PRN ID IV START; Start at 07:00; Stop 06/02/17 at 10:49; Status DC Hydromorphone HCl (Dilaudid) 0.5 mg PRN Q10MIN PRN IV SEV PAIN, Second choice; Start 06/02/17 at 07:00; Stop 06/02/17 at 10:49; Status DC Prochlorperazine Edisylate (Compazine) 5 mg PACU PRN PRN IV NAUSEA, MRX1; Start 06/02/17 at 07:00; Stop 06/02/17 at 10:49; Status DC Piperacillin Sod/ Tazobactam Sod 2.25 gm/Dextrose 50 ml @ 100 mls/hr Q8HRS IV ; Start 06/01/17 at 22:00; Status Cancel Clindamycin Phosphate 50 ml @ 100 mls/hr Q8H IV Last administered on 02:19; Start 06/01/17 at 19:00; Stop 06/02/17 at 07:26; Status DC Vancomycin HCl (Vanco Per Pharmacy) 1 each PRN DAILY PRN MC SEE COMMENTS Last administered on 06/02/17 11:00; Start 06/01/17 at 19:00 Micafungin Sodium 100 mg/Dextrose 100 ml @ 100 mls/hr 1X ONCE IV ; Start 06/01 at 19:00; Stop 06/01/17 at 19:59; Status Cancel Piperacillin Sod/ Tazobactam Sod (Zosyn) 2.25 gm Q8HRS IVP Last administered on 06/02/17 14:03; Start 06/01/17 at 22:00 Vancomycin HCl 2 gm/Dextrose/ Sodium Chloride 500 ml @ 250 mls/hr 1X ONCE IV Last administered on 06/01/17 20:46; Start 06/01/17 at 20:00; Stop 06/01/17 at 21:59; Status DC Micafungin Sodium 100 mg/Sodium Chloride 100 ml @ 100 mls/hr 1X ONCE IV Last administered on 06/01/17 20:46; Start 06/01/17 at 20:00; Stop 06/02/17 at 07:26 ; Status DC Heparin Sodium (Porcine) (Heparin Sq) 5,000 unit Q8HRS SQ ; Start 06/01/17 at 22 :00 Lidocaine HCl 20 ml STK-MED ONCE .ROUTE Last administered on 06/02/17 07:54; Start 06/02/17 at 06:51; Stop 06/02/17 at 06:52; Status DC Bupivacaine HCl (Marcaine 0.5%) 50 ml STK-MED ONCE .ROUTE Last administered on 06/02/17 07:54; Start 06/02/17 at 06:51; Stop 06/02/17 at 06:52; Status DC Povidone Iodine ( Betadine Oint) 28 rosetta STK-MED ONCE TP ; Start 06/02/17 at 06: 52; Stop 06/02/17 at 06:53; Status DC Dexamethasone Sodium Phosphate (Decadron) 4 mg STK-MED ONCE .ROUTE ; Start 06/02 at 06:52; Stop 06/02/17 at 06:53; Status DC Propofol 20 ml @ As Directed STK-MED ONCE IV ; Start 06/02/17 at 07:17; Stop at 07:18; Status DC Dexamethasone Sodium Phosphate (Decadron) 20 mg STK-MED ONCE .ROUTE ; Start 06/02/17 at 07:17; Stop 06/02/17 at 07:18; Status DC Lidocaine HCl (Lidocaine Pf 2% Vial) 5 ml STK-MED ONCE .ROUTE ; Start 06/02/17 at 07:17; Stop 06/02/17 at 07:18; Status DC Ondansetron HCl (Zofran) 4 mg STK-MED ONCE .ROUTE ; Start 06/02/17 at 07:17; Stop 06/02/17 at 07:18; Status DC Fentanyl Citrate (Fentanyl 2ml Vial) 100 mcg STK-MED ONCE .ROUTE ; Start at 07:17; Stop 06/02/17 at 07:18; Status DC Sodium Chloride 500 ml @ 250 mls/hr PACU PRN PRN IV TKO Last administered on 06/02/17 08:40; Start 06/02/17 at 07:30; Stop 06/02/17 at 10:49; Status DC Fluconazole (Diflucan) 100 mg DAILY PO Last administered on 06/02/17 10:48; Start 06/02/17 at 09:00 Lactobacillus Rhamnosus (Culturelle) 1 cap BID PO ; Start 06/02/17 at 09:00 Phenylephrine HCl (Ministerio-Synephrine Inj) 10 mg STK-MED ONCE .ROUTE ; Start at 07:56; Stop 06/02/17 at 07:57; Status DC Sodium Chloride (Sodium Chloride) 50 ml STK-MED ONCE IJ ; Start 06/02/17 at 07: 57; Stop 06/02/17 at 07:58; Status DC Sevoflurane (Ultane) 30 ml STK-MED ONCE IH ; Start 06/02/17 at 07:57; Stop 06/02 at 07:58; Status DC Sodium Chloride 1,000 ml @ 100 mls/hr Q10H IV ; Start 06/02/17 at 08:00; Stop 06/02/17 at 10:21; Status DC Vancomycin HCl 1 each 1X ONCE MC ; Start 06/03/17 at 06:00; Stop 06/03/17 at 06 :01 Acetaminophen/ Hydrocodone Bitart (Lortab 5/325) 1 tab PRN Q4HRS PRN PO MODERATE PAIN Last administered on 06/02/17t 14:04; Start 06/02/17 at 11:45 Active Scripts Active Reported Abilify (Aripiprazole) 5 Mg Tablet 5 Mg PO DAILY Carvedilol 3.125 Mg Tablet 3.125 Mg PO BIDWMEALS Gabapentin 100 Mg Capsule 100 Mg PO TID Lasix (Furosemide) 40 Mg Tablet 1 Tab PO DAILY Vitals/I & O Vital Sign - Last 24 Hours 06/01/17 06/01/17 06/01/17 06/01/17 19:00 19:10 20:00 23:00 Temp 98.7 98.1 98.7 98.1 Pulse 90 87 Resp 18 16 B/P (MAP) 156/82 (106) Pulse Ox 94 O2 Delivery Room Air Room Air Room Air Room Air 06/02/17 06/02/17 06/02/17 06/02/17 02:36 06:40 07:11 08:40 Temp 98.1 97.2 98.1 98.1 97.2 98.1 Pulse 81 78 86 Resp 16 15 18 B/P (MAP) 147/52 (83) 156/82 149/65 Pulse Ox 96 99 O2 Delivery Room Air Room Air Room Air Simple Mask O2 Flow Rate 10 06/02/17 06/02/17 06/02/17 06/02/17 08:55 09:10 09:25 09:43 Pulse 74 72 77 72 Resp 18 18 18 18 B/P (MAP) 142/54 153/67 144/60 171/76 Pulse Ox 99 98 98 98 O2 Delivery Simple Mask Room Air Room Air Room Air O2 Flow Rate 10 06/02/17 06/02/17 06/02/17 06/02/17 10:00 10:15 10:30 10:45 Temp 97.7 98.6 97.7 98.6 Pulse 68 80 74 75 Resp 16 16 20 B/P (MAP) 150/84 (106) 145/84 (104) 157/78 (104) 160/91 (114) Pulse Ox 100 98 99 O2 Delivery Room Air Room Air 06/02/17 06/02/17 06/02/17 06/02/17 11:16 11:45 12:00 12:30 Pulse 79 74 82 86 B/P (MAP) 179/91 (120) 179/102 (127) 169/79 (109) 143/77 (99) Pulse Ox 100 O2 Delivery Room Air Room Air 06/02/17 06/02/17 06/02/17 06/02/17 12:45 13:00 14:04 15:02 Temp 98.5 98.5 Pulse 79 83 74 Resp 20 B/P (MAP) 142/74 (96) 132/80 (97) 156/82 (106) Pulse Ox 96 97 O2 Delivery Room Air Room Air Room Air 06/02/17 15:04 Resp 20 Pulse Ox 97 O2 Delivery Room Air Intake and Output 06/01/17 06/01/17 06/02/17 15:00 23:00 07:00 Intake Total 1290 ml Output Total 250 ml Balance 1290 ml -250 ml HIRAM COPELAND K III DO Jun 02, 2017 16:41
[2017-06-02] MEDS ORDERED: DEXTROSE 50% 25 GM / 50ML DISP.SYRIN. IV PRN (17:15)
[2017-06-02] MEDS: INSULIN ASPART 300 UNITS/3 ML INSULN.PEN SQ SCH (17:32)
--- NOTE | 2017-06-02 23:29 | CONS ---
DATE OF CONSULTATION: PRIMARY PHYSICIAN: Dr. Hernadez. REASON FOR CONSULTATION: ESRD dialysis. HISTORY OF PRESENT ILLNESS: The patient is a 52-year-old gentleman, who dialyzes under the care of ____ dialysis and [facility] physicians. He is known to have longstanding diabetes since the age of 16, presumably type 1, but he is not sure. He started dialysis in July 2016 was doing well until recently. He recently developed foot wound and is now admitted for the same. His ESRD is felt to be due to diabetes. We were asked to see him for Monday, , Monday dialysis. PAST MEDICAL HISTORY: Also significant for cataract extractions, lens implants, peripheral neuropathy, depression, anxiety if not mentioned previously. For rest of the detail, see electronic records. VERÓNICA MEDINA MD DR: TYLER/sarah JOB#: [id number] / [id number]
[2017-06-03 03:00] VITALS: BP 142/73
[2017-06-03 05:25] LABS: HEMATOCRIT 33.1 % (39.0-53.0); HEMOGLOBIN 11.3 g/dL (13.0-17.5); RED BLOOD COUNT 3.51 x10^6/uL (4.30-5.70); WHITE BLOOD COUNT 10.4 x10^3/uL (4.0-11.0)
[2017-06-03] MEDS: HYDROcodone/APAP 5/325MG 1 TAB TABLET PO PRN ×3 (05:42→19:26)
[2017-06-03] MEDS: PIPERACILLIN/TAZO IV Push 2.25 GM VIAL. IVP SCH ×3 (05:43→21:55)
[2017-06-03] MEDS: HEPARIN PF for SUB-Q USE 5,000 UNIT/0.5 ML VIAL. SQ SCH ×3 (05:45→21:58)
[2017-06-03] MEDS ORDERED: VANCOMYCIN RANDOM LEVEL. MC ONE (06:00)
[2017-06-03 07:00] VITALS: BP 150/73
[2017-06-03] MEDS: VANCOMYCIN PER PHARMACY MC PRN (07:26)
[2017-06-03] MEDS: INSULIN ASPART 300 UNITS/3 ML INSULN.PEN SQ SCH ×3 (08:40→16:53)
[2017-06-03] MEDS ORDERED: LIDOCAINE 1% PF 2 ML VIAL. ONE (08:52)
[2017-06-03] MEDS ORDERED: LIDOCAINE 1% PF 2 ML VIAL. INJ ONE (09:00)
[2017-06-03] MEDS ORDERED: DIALYSIS PATIENT. MC PRN (09:00)
--- NOTE | 2017-06-03 11:58 | PDOC ---
Renal-Progress Notes Subjective Notes Notes NO COMPLAINTS VOICED History of Present Illness Hx of present illness STABLE Vitals Vitals Vital Signs Date Time Temp Pulse Resp B/P (MAP) Pulse Ox O2 Delivery O2 Flow Rate FiO2 06/03/17 08:30 Room Air 06/03/17 07:00 97.5 66 18 150/73 (98) 97 97.5 06/02/17 08:55 10 Weight Weight [ ] I.O. Intake and Output Intake and Output 06/03/17 07:00 Intake Total 1760 ml Output Total 1355 ml Balance 405 ml Intake Oral 1360 ml IV Total 400 ml Output Urine Total 1350 ml Estimated Blood Loss 5 ml # Voids 1 # Bowel Movements 1 Labs Labs Laboratory Tests Test 06/02/17 16:44 06/03/17 04:40 06/03/17 07:37 06/03/17 11:49 Glucose (Fingerstick) 338 mg/dL (70-99) 262 mg/dL (70-99) 174 mg/dL (70-99) White Blood Count 10.4 x10^3/uL (4.0-11.0) Red Blood Count 3.51 x10^6/uL (4.30-5.70) Hemoglobin 11.3 g/dL (13.0-17.5) Hematocrit 33.1 % (39.0-53.0) Mean Corpuscular Volume 95 fL (79-100) Mean Corpuscular Hemoglobin 32 pg (25-35) Mean Corpuscular Hemoglobin Concent 34 g/dL (31-37) Red Cell Distribution Width 14.0 % (11.5-14.5) Platelet Count 209 x10^3/uL (140-400) Random Vancomycin Level 18.8 mcg/mL Review of Systems Constitutional: yes: alert, oriented Ears/Nose/Throat: Yes: no symptom reported Eyes: Yes: no symptom reported Pulmonary: Yes no symptom reported Cardiovascular: Yes no symptom reported Genitourinary: Yes: no symptom reported Musculoskeletal: Yes: foot pain, muscle stiffness Skin: Yes no symptom reported Psychiatric/Neurological: Yes: no symptom reported Endocrine: Yes: no symptom reported Physical Exam General Appearance: no apparent distress Skin: warm Respiratory: bilateral CTA Heart: S1S2 Abdomen: soft Extremities: pulses present Neurology: alert, oriented Assessment Assessment IMP ESRD ANEMIA DM II HTN RIGHT FOOT OSTEO PLAN ANTIBIOTICS HD TODAY UF TO DW MAT TRINH MD Jun 03, 2017 11:58
--- NOTE | 2017-06-03 12:47 | PDOC ---
PROGRESS NOTES Chief Complaint Chief Complaint Osteomyelitis Diabetic foot ulcer Cellulitis Tobacco abuse ESRD on dialysis Mod alcohol abuse Possible osteomyelitis Dietary noncompliance History of Present Illness History of Present Illness Pt seen in dialysis. He was dressed in hospital attire and grossly alert and oriented. He would like to go home. Wound pictures were reviewed. Vitals Vitals Vital Signs Date Time Temp Pulse Resp B/P (MAP) Pulse Ox O2 Delivery O2 Flow Rate FiO2 06/03/17 08:30 Room Air 06/03/17 07:00 97.5 66 18 150/73 (98) 97 97.5 06/02/17 08:55 10 Physical Exam Physical Exam Eyes: sclera anicteric, no conjunctival injection HENT: MMM, no throat erythema General: Alert, Cooperative, No acute distress Heart: Regular rate, Normal S1, Normal S2, No murmurs Lungs: Clear, Other (No rales, rhonchi, wheezes) Extremities: No clubbing, No cyanosis, No edema, Other (Rt foot ulcer bandaged) Labs LABS Laboratory Tests Test 06/02/17 16:44 06/03/17 04:40 06/03/17 07:37 06/03/17 11:49 Glucose (Fingerstick) 338 mg/dL (70-99) 262 mg/dL (70-99) 174 mg/dL (70-99) White Blood Count 10.4 x10^3/uL (4.0-11.0) Red Blood Count 3.51 x10^6/uL (4.30-5.70) Hemoglobin 11.3 g/dL (13.0-17.5) Hematocrit 33.1 % (39.0-53.0) Mean Corpuscular Volume 95 fL (79-100) Mean Corpuscular Hemoglobin 32 pg (25-35) Mean Corpuscular Hemoglobin Concent 34 g/dL (31-37) Red Cell Distribution Width 14.0 % (11.5-14.5) Platelet Count 209 x10^3/uL (140-400) Random Vancomycin Level 18.8 mcg/mL Review of Systems Review of Systems Denies chest pain or shortness of breath Assessment and Plan Assessmemt and Plan ASSESSMENT: Osteomyelitis Diabetic foot ulcer Cellulitis Tobacco abuse ESRD on dialysis Mod alcohol abuse Possible osteomyelitis Dietary noncompliance PLAN: On HD Continue Abx and wound care Recheck labs PT/OT Continue current meds Possible d/c when ok with surgery Follow up with PCP after d/c Problems: Comment Review of Relevant I have reviewed the following items sabina (where applicable) has been applied. Labs Laboratory Tests Test 06/01/17 13:12 06/01/17 13:40 06/01/17 20:54 06/02/17 03:40 Glucose (Fingerstick) 184 mg/dL (70-99) 152 mg/dL (70-99) White Blood Count 6.4 x10^3/uL (4.0-11.0) 6.4 x10^3/uL (4.0-11.0) Red Blood Count 4.16 x10^6/uL (4.30-5.70) 3.57 x10^6/uL (4.30-5.70) Hemoglobin 13.5 g/dL (13.0-17.5) 11.5 g/dL (13.0-17.5) Hematocrit 40.0 % (39.0-53.0) 34.1 % (39.0-53.0) Mean Corpuscular Volume 96 fL (79-100) 96 fL (79-100) Mean Corpuscular Hemoglobin 32 pg (25-35) 32 pg (25-35) Mean Corpuscular Hemoglobin Concent 34 g/dL (31-37) 34 g/dL (31-37) Red Cell Distribution Width 14.2 % (11.5-14.5) 14.4 % (11.5-14.5) Platelet Count 263 x10^3/uL (140-400) 204 x10^3/uL (140-400) Neutrophils (%) (Auto) 74 % (31-73) 66 % (31-73) Lymphocytes (%) (Auto) 13 % (24-48) 18 % (24-48) Monocytes (%) (Auto) 10 % (0-9) 11 % (0-9) Eosinophils (%) (Auto) 2 % (0-3) 5 % (0-3) Basophils (%) (Auto) 1 % (0-3) 1 % (0-3) Neutrophils # (Auto) 4.7 x10^3uL (1.8-7.7) 4.2 x10^3uL (1.8-7.7) Lymphocytes # (Auto) 0.8 x10^3/uL (1.0-4.8) 1.2 x10^3/uL (1.0-4.8) Monocytes # (Auto) 0.7 x10^3/uL (0.0-1.1) 0.7 x10^3/uL (0.0-1.1) Eosinophils # (Auto) 0.1 x10^3/uL (0.0-0.7) 0.3 x10^3/uL (0.0-0.7) Basophils # (Auto) 0.0 x10^3/uL (0.0-0.2) 0.0 x10^3/uL (0.0-0.2) Erythrocyte Sedimentation Rate 115 (0-15) Sodium Level 139 mmol/L (136-145) 132 mmol/L (136-145) Potassium Level 3.7 mmol/L (3.5-5.1) 3.6 mmol/L (3.5-5.1) Chloride Level 96 mmol/L (98-107) 95 mmol/L (98-107) Carbon Dioxide Level 32 mmol/L (21-32) 25 mmol/L (21-32) Anion Gap 11 (6-14) 12 (6-14) Blood Urea Nitrogen 28 mg/dL (8-26) 41 mg/dL (8-26) Creatinine 3.9 mg/dL (0.7-1.3) 4.9 mg/dL (0.7-1.3) Estimated GFR (Cockcroft-Gault) 16.2 12.4 BUN/Creatinine Ratio 7 (6-20) 8 (6-20) Glucose Level 192 mg/dL (70-99) 155 mg/dL (70-99) Hemoglobin A1c 7.1 % (4.8-5.6) Calcium Level 10.0 mg/dL (8.5-10.1) 8.7 mg/dL (8.5-10.1) Total Bilirubin 0.5 mg/dL (0.2-1.0) 0.5 mg/dL (0.2-1.0) Aspartate Amino Transf (AST/SGOT) 32 U/L (15-37) 25 U/L (15-37) Alanine Aminotransferase (ALT/SGPT) 30 U/L (16-63) 22 U/L (16-63) Alkaline Phosphatase 120 U/L (46-116) 89 U/L (46-116) C-Reactive Protein, Quantitative 60.0 mg/L (0-3.3) Total Protein 9.3 g/dL (6.4-8.2) 7.2 g/dL (6.4-8.2) Albumin 3.5 g/dL (3.4-5.0) 2.6 g/dL (3.4-5.0) Albumin/Globulin Ratio 0.6 (1.0-1.7) 0.6 (1.0-1.7) Test 06/02/17 08:51 06/02/17 10:52 06/02/17 16:44 06/03/17 04:40 Glucose (Fingerstick) 154 mg/dL (70-99) 179 mg/dL (70-99) 338 mg/dL (70-99) White Blood Count 10.4 x10^3/uL (4.0-11.0) Red Blood Count 3.51 x10^6/uL (4.30-5.70) Hemoglobin 11.3 g/dL (13.0-17.5) Hematocrit 33.1 % (39.0-53.0) Mean Corpuscular Volume 95 fL (79-100) Mean Corpuscular Hemoglobin 32 pg (25-35) Mean Corpuscular Hemoglobin Concent 34 g/dL (31-37) Red Cell Distribution Width 14.0 % (11.5-14.5) Platelet Count 209 x10^3/uL (140-400) Random Vancomycin Level 18.8 mcg/mL Test 06/03/17 07:37 06/03/17 11:49 Glucose (Fingerstick) 262 mg/dL (70-99) 174 mg/dL (70-99) Laboratory Tests Test 06/02/17 16:44 06/03/17 04:40 06/03/17 07:37 06/03/17 11:49 Glucose (Fingerstick) 338 mg/dL (70-99) 262 mg/dL (70-99) 174 mg/dL (70-99) White Blood Count 10.4 x10^3/uL (4.0-11.0) Red Blood Count 3.51 x10^6/uL (4.30-5.70) Hemoglobin 11.3 g/dL (13.0-17.5) Hematocrit 33.1 % (39.0-53.0) Mean Corpuscular Volume 95 fL (79-100) Mean Corpuscular Hemoglobin 32 pg (25-35) Mean Corpuscular Hemoglobin Concent 34 g/dL (31-37) Red Cell Distribution Width 14.0 % (11.5-14.5) Platelet Count 209 x10^3/uL (140-400) Random Vancomycin Level 18.8 mcg/mL Medications Current Medications Sodium Chloride (Normal Saline Flush) 3 ml PRN DAILY PRN IV AFTER MEDS AND BLOOD DRAWS; Start 06/01/17 at 13:15 Ondansetron HCl (Zofran) 4 mg PRN Q6HRS PRN IV NAUSEA/VOMITING; Start 06/02/17 at 07:00; Stop 06/02/17 at 10:48; Status DC Fentanyl Citrate (Fentanyl 2ml Vial) 25 mcg PRN Q5MIN PRN IV MILD PAIN; Start 06/02/17 at 07:00; Stop 06/02/17 at 10:49; Status DC Fentanyl Citrate (Fentanyl 2ml Vial) 50 mcg PRN Q5MIN PRN IV MODERATE PAIN; Start 06/02/17 at 07:00; Stop 06/02/17 at 10:49; Status DC Morphine Sulfate 1 mg PRN Q10MIN PRN IV SEVERE PAIN; Start 06/02/17 at 07:00; Stop 06/02/17 at 10:49; Status DC Ringer's Solution 1,000 ml @ 30 mls/hr Q24H IV ; Start 06/02/17 at 07:00; Stop 06/02/17 at 10:21; Status DC Lidocaine HCl (Xylocaine-Mpf 1% Vial) 2 ml PRN 1X PRN ID IV START; Start at 07:00; Stop 06/02/17 at 10:49; Status DC Hydromorphone HCl (Dilaudid) 0.5 mg PRN Q10MIN PRN IV SEV PAIN, Second choice; Start 06/02/17 at 07:00; Stop 06/02/17 at 10:49; Status DC Prochlorperazine Edisylate (Compazine) 5 mg PACU PRN PRN IV NAUSEA, MRX1; Start 06/02/17 at 07:00; Stop 06/02/17 at 10:49; Status DC Piperacillin Sod/ Tazobactam Sod 2.25 gm/Dextrose 50 ml @ 100 mls/hr Q8HRS IV ; Start 06/01/17 at 22:00; Status Cancel Clindamycin Phosphate 50 ml @ 100 mls/hr Q8H IV Last administered on 02:19; Start 06/01/17 at 19:00; Stop 06/02/17 at 07:26; Status DC Vancomycin HCl (Vanco Per Pharmacy) 1 each PRN DAILY PRN MC SEE COMMENTS Last administered on 06/03/17 07:26; Start 06/01/17 at 19:00 Micafungin Sodium 100 mg/Dextrose 100 ml @ 100 mls/hr 1X ONCE IV ; Start 06/01 at 19:00; Stop 06/01/17 at 19:59; Status Cancel Piperacillin Sod/ Tazobactam Sod (Zosyn) 2.25 gm Q8HRS IVP Last administered on 06/03/17 05:43; Start 06/01/17 at 22:00 Vancomycin HCl 2 gm/Dextrose/ Sodium Chloride 500 ml @ 250 mls/hr 1X ONCE IV Last administered on 06/01/17 20:46; Start 06/01/17 at 20:00; Stop 06/01/17 at 21:59; Status DC Micafungin Sodium 100 mg/Sodium Chloride 100 ml @ 100 mls/hr 1X ONCE IV Last administered on 06/01/17 20:46; Start 06/01/17 at 20:00; Stop 06/02/17 at 07:26 ; Status DC Heparin Sodium (Porcine) (Heparin Sq) 5,000 unit Q8HRS SQ Last administered on 06/02/17 20:18; Start 06/01/17 at 22:00 Lidocaine HCl 20 ml STK-MED ONCE .ROUTE Last administered on 06/02/17 07:54; Start 06/02/17 at 06:51; Stop 06/02/17 at 06:52; Status DC Bupivacaine HCl (Marcaine 0.5%) 50 ml STK-MED ONCE .ROUTE Last administered on 06/02/17 07:54; Start 06/02/17 at 06:51; Stop 06/02/17 at 06:52; Status DC Povidone Iodine ( Betadine Oint) 28 rosetta STK-MED ONCE TP ; Start 06/02/17 at 06: 52; Stop 06/02/17 at 06:53; Status DC Dexamethasone Sodium Phosphate (Decadron) 4 mg STK-MED ONCE .ROUTE ; Start 06/02 at 06:52; Stop 06/02/17 at 06:53; Status DC Propofol 20 ml @ As Directed STK-MED ONCE IV ; Start 06/02/17 at 07:17; Stop at 07:18; Status DC Dexamethasone Sodium Phosphate (Decadron) 20 mg STK-MED ONCE .ROUTE ; Start 06/02/17 at 07:17; Stop 06/02/17 at 07:18; Status DC Lidocaine HCl (Lidocaine Pf 2% Vial) 5 ml STK-MED ONCE .ROUTE ; Start 06/02/17 at 07:17; Stop 06/02/17 at 07:18; Status DC Ondansetron HCl (Zofran) 4 mg STK-MED ONCE .ROUTE ; Start 06/02/17 at 07:17; Stop 06/02/17 at 07:18; Status DC Fentanyl Citrate (Fentanyl 2ml Vial) 100 mcg STK-MED ONCE .ROUTE ; Start at 07:17; Stop 06/02/17 at 07:18; Status DC Sodium Chloride 500 ml @ 250 mls/hr PACU PRN PRN IV TKO Last administered on 06/02/17 08:40; Start 06/02/17 at 07:30; Stop 06/02/17 at 10:49; Status DC Fluconazole (Diflucan) 100 mg DAILY PO Last administered on 06/02/17 10:48; Start 06/02/17 at 09:00 Lactobacillus Rhamnosus (Culturelle) 1 cap BID PO Last administered on 20:12; Start 06/02/17 at 09:00 Phenylephrine HCl (Ministerio-Synephrine Inj) 10 mg STK-MED ONCE .ROUTE ; Start at 07:56; Stop 06/02/17 at 07:57; Status DC Sodium Chloride (Sodium Chloride) 50 ml STK-MED ONCE IJ ; Start 06/02/17 at 07: 57; Stop 06/02/17 at 07:58; Status DC Sevoflurane (Ultane) 30 ml STK-MED ONCE IH ; Start 06/02/17 at 07:57; Stop 06/02 at 07:58; Status DC Sodium Chloride 1,000 ml @ 100 mls/hr Q10H IV ; Start 06/02/17 at 08:00; Stop 06/02/17 at 10:21; Status DC Vancomycin HCl 1 each 1X ONCE MC ; Start 06/03/17 at 06:00; Stop 06/03/17 at 06 :01; Status DC Acetaminophen/ Hydrocodone Bitart (Lortab 5/325) 1 tab PRN Q4HRS PRN PO MODERATE PAIN Last administered on 06/03/17 05:42; Start 06/02/17 at 11:45 Insulin Aspart (NovoLOG) 0-7 UNITS TIDWMEALS SQ Last administered on 06/03/17 08:40; Start 06/02/17 at 17:30 Dextrose (Dextrose 50%-Water Syringe) 12.5 gm PRN Q15MIN PRN IV SEE COMMENTS; Start 06/02/17 at 17:15 Vancomycin HCl 500 mg/Sodium Chloride 100 ml @ 100 mls/hr QTUTHSA IV ; Start 06/03/17 at 16:00; Status Cancel Vancomycin HCl 750 mg/Sodium Chloride 250 ml @ 250 mls/hr QTUTHSA IV ; Start 06/03/17 at 16:00 Lidocaine HCl (Xylocaine-Mpf 1% Vial) 2 ml STK-MED ONCE .ROUTE ; Start 06/03/17 at 08:52; Stop 06/03/17 at 08:53; Status DC Lidocaine HCl (Xylocaine-Mpf 1% Vial) 2 ml 1X ONCE INJ Last administered on 09:00; Start 06/03/17 at 09:00; Stop 06/03/17 at 09:01; Status DC Info (PHARMACY MONITORING -- do not chart) 1 each PRN DAILY PRN MC SEE COMMENTS ; Start 06/03/17 at 09:00 Active Scripts Active Reported Novolog Flexpen (Insulin Aspart) 100 Unit/1 Ml Insuln.pen 4-6 Unit SQ TIDWMEALS Nephro-Alexander Tablet (Folic Acid/Vitamin B Comp W-C) 0.8 Mg Tablet 1 Tab PO DAILY Bupropion Xl (Bupropion Hcl) 150 Mg Tab.er.24h 1 Tab PO DAILY Trazodone Hcl 100 Mg Tablet 1 Tab PO QHS Atorvastatin Calcium 40 Mg Tablet 1 Tab PO QHS Abilify (Aripiprazole) 5 Mg Tablet 5 Mg PO DAILY Carvedilol 3.125 Mg Tablet 3.125 Mg PO BIDWMEALS Gabapentin 100 Mg Capsule 100 Mg PO TID Lasix (Furosemide) 40 Mg Tablet 1 Tab PO DAILY Vitals/I & O Vital Sign - Last 24 Hours 06/02/17 06/02/17 06/02/17 06/02/17 12:45 13:00 14:04 15:02 Temp 98.5 98.5 Pulse 79 83 74 Resp 20 B/P (MAP) 142/74 (96) 132/80 (97) 156/82 (106) Pulse Ox 96 97 O2 Delivery Room Air Room Air Room Air 06/02/17 06/02/17 06/02/17 06/02/17 15:04 19:00 19:23 20:12 Temp 98.7 98.7 Pulse 80 Resp 20 18 B/P (MAP) 170/83 (112) Pulse Ox 97 96 O2 Delivery Room Air Room Air Room Air 06/02/17 06/03/17 06/03/17 06/03/17 23:00 03:00 05:42 06:42 Temp 97.8 97.8 97.8 97.8 Pulse 72 66 Resp 18 18 B/P (MAP) 153/69 (97) 142/73 (96) Pulse Ox 97 98 O2 Delivery Room Air Room Air Room Air Room Air 06/03/17 06/03/17 07:00 08:30 Temp 97.5 97.5 Pulse 66 Resp 18 B/P (MAP) 150/73 (98) Pulse Ox 97 O2 Delivery Room Air Room Air Intake and Output 06/02/17 06/02/17 06/03/17 14:59 22:59 06:59 Intake Total 1140 ml 620 ml Output Total 505 ml 600 ml 250 ml Balance 635 ml 20 ml -250 ml HIRAM COPELAND III DO Jun 03, 2017 12:47
[2017-06-03] MEDS: FLUCONAZOLE 100 MG TABLET. PO SCH (13:38)
[2017-06-03] MEDS: LACTOBACILLUS RHAMNOSUS GG 1 CAPSULE. PO SCH ×2 (13:38→21:49)
--- NOTE | 2017-06-03 14:56 | PDOC ---
Infectious Disease Note Subjective Subjective c/o some right foot pain Loose stool earlier. Denies N/V/cramps ROS ROS Denies fever or chills Denies SOA, cough Denies rash Vital Sign Vital Signs Vital Signs Date Time Temp Pulse Resp B/P (MAP) Pulse Ox O2 Delivery O2 Flow Rate FiO2 06/03/17 14:38 Room Air 06/03/17 13:38 18 06/03/17 07:00 97.5 66 150/73 (98) 97 97.5 06/02/17 08:55 10 Physical Exam PHYSICAL EXAM GENREAL: Propped up in bed, NAD LUNGS: Clear HEART: S1 and S2 ABD: BS active, soft, NT EXT: LUE-AV fistula. Right foot post-op dressing dry. SKIN: without rash Labs Lab Laboratory Tests Test 06/02/17 16:44 06/03/17 04:40 06/03/17 07:37 06/03/17 11:49 Glucose (Fingerstick) 338 mg/dL (70-99) 262 mg/dL (70-99) 174 mg/dL (70-99) White Blood Count 10.4 x10^3/uL (4.0-11.0) Red Blood Count 3.51 x10^6/uL (4.30-5.70) Hemoglobin 11.3 g/dL (13.0-17.5) Hematocrit 33.1 % (39.0-53.0) Mean Corpuscular Volume 95 fL (79-100) Mean Corpuscular Hemoglobin 32 pg (25-35) Mean Corpuscular Hemoglobin Concent 34 g/dL (31-37) Red Cell Distribution Width 14.0 % (11.5-14.5) Platelet Count 209 x10^3/uL (140-400) Random Vancomycin Level 18.8 mcg/mL Objective Assessment Right foot wound on plantar aspect - likely osteomyelitis, s/p partial first ray amputation, right foot. 06/02. no cultures DM since age 16 CKD on HD - since Jul 2016 COPD Plan Plan of Care Vanc, Zosyn and fluconazole F/u labs Supportive care Attending Co-Sign The patient was seen and interviewed as well as examined at the bedside. The chart was reviewed. The case was discussed. Agree with the plan of care. pt was seen on 06/03/17 CARLOS CAICEDO [employer] Jun 03, 2017 14:56 ANDRE MEDINA MD Jun 04, 2017 13:51
[2017-06-03 15:07] VITALS: BP 167/75
[2017-06-03] MEDS ORDERED: VANCOMYCIN 500 MG in IV NORMAL SALINE 100ML 100 ML IV SCH (16:00)
[2017-06-03] MEDS ORDERED: VANCOMYCIN 750 MG in IV NORMAL SALINE 250ML 250 ML IV SCH (16:00)
--- NOTE | 2017-06-03 16:49 | PDOC ---
PROGRESS NOTES Subjective Subjective Patient seen bedside resting comfortable with dressing to right foot clean, dry , intact. Objective Objective Vital Signs Date Time Temp Pulse Resp B/P (MAP) Pulse Ox O2 Delivery O2 Flow Rate FiO2 06/03/17 15:07 98.1 83 18 167/75 (105) 97 Room Air 98.1 06/02/17 08:55 10 Intake and Output 06/03/17 07:00 Intake Total 1760 ml Output Total 1355 ml Balance 405 ml Intake Oral 1360 ml IV Total 400 ml Output Urine Total 1350 ml Estimated Blood Loss 5 ml # Voids 1 # Bowel Movements 1 Physical Exam Physical Exam Lower extremity: Note surgical incision to 1st ray dorsal and plantar with skin edges well alligned, sutures intact, scant sanguinous drainage expressed at distal incision. no ischemic changes. no ascending cellulitis. no calor. Mild edema to 1st ray. DP and PT 2/4. CFT to remaining digits less than 3 seconds. Sensation absent to light touch. no pain on palpation. 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 Consult physical therapy at this time for gait training non weightbearing right foot Patient has been non compliant with weightbearing and excessive activity outpatient Discussed possible placement to SNF pending physical therapy recommendations Has had problems in the past with transportation and was walking and taking bus 3x/week to HD. Social work to confirm patient would have transportation if he refuses placement in SNF. Follow up in 1 week upon discharge Wound care orders 3x/week dressing changes pain with betadine, gauze, kerlex, syl bandage. high risk for limb loss due to non compliance. Bathroom privileges only non weightbearing to right lower extremity. Comment Review of Relevant I have reviewed the following items sabina (where applicable) has been applied. Labs Laboratory Tests Test 06/01/17 20:54 06/02/17 03:40 06/02/17 08:51 06/02/17 10:52 Glucose (Fingerstick) 152 mg/dL (70-99) 154 mg/dL (70-99) 179 mg/dL (70-99) White Blood Count 6.4 x10^3/uL (4.0-11.0) Red Blood Count 3.57 x10^6/uL (4.30-5.70) Hemoglobin 11.5 g/dL (13.0-17.5) Hematocrit 34.1 % (39.0-53.0) Mean Corpuscular Volume 96 fL (79-100) Mean Corpuscular Hemoglobin 32 pg (25-35) Mean Corpuscular Hemoglobin Concent 34 g/dL (31-37) Red Cell Distribution Width 14.4 % (11.5-14.5) Platelet Count 204 x10^3/uL (140-400) Neutrophils (%) (Auto) 66 % (31-73) Lymphocytes (%) (Auto) 18 % (24-48) Monocytes (%) (Auto) 11 % (0-9) Eosinophils (%) (Auto) 5 % (0-3) Basophils (%) (Auto) 1 % (0-3) Neutrophils # (Auto) 4.2 x10^3uL (1.8-7.7) Lymphocytes # (Auto) 1.2 x10^3/uL (1.0-4.8) Monocytes # (Auto) 0.7 x10^3/uL (0.0-1.1) Eosinophils # (Auto) 0.3 x10^3/uL (0.0-0.7) Basophils # (Auto) 0.0 x10^3/uL (0.0-0.2) Sodium Level 132 mmol/L (136-145) Potassium Level 3.6 mmol/L (3.5-5.1) Chloride Level 95 mmol/L (98-107) Carbon Dioxide Level 25 mmol/L (21-32) Anion Gap 12 (6-14) Blood Urea Nitrogen 41 mg/dL (8-26) Creatinine 4.9 mg/dL (0.7-1.3) Estimated GFR (Cockcroft-Gault) 12.4 BUN/Creatinine Ratio 8 (6-20) Glucose Level 155 mg/dL (70-99) Calcium Level 8.7 mg/dL (8.5-10.1) Total Bilirubin 0.5 mg/dL (0.2-1.0) Aspartate Amino Transf (AST/SGOT) 25 U/L (15-37) Alanine Aminotransferase (ALT/SGPT) 22 U/L (16-63) Alkaline Phosphatase 89 U/L (46-116) Total Protein 7.2 g/dL (6.4-8.2) Albumin 2.6 g/dL (3.4-5.0) Albumin/Globulin Ratio 0.6 (1.0-1.7) Test 06/02/17 16:44 06/03/17 04:40 06/03/17 07:37 06/03/17 11:49 Glucose (Fingerstick) 338 mg/dL (70-99) 262 mg/dL (70-99) 174 mg/dL (70-99) White Blood Count 10.4 x10^3/uL (4.0-11.0) Red Blood Count 3.51 x10^6/uL (4.30-5.70) Hemoglobin 11.3 g/dL (13.0-17.5) Hematocrit 33.1 % (39.0-53.0) Mean Corpuscular Volume 95 fL (79-100) Mean Corpuscular Hemoglobin 32 pg (25-35) Mean Corpuscular Hemoglobin Concent 34 g/dL (31-37) Red Cell Distribution Width 14.0 % (11.5-14.5) Platelet Count 209 x10^3/uL (140-400) Random Vancomycin Level 18.8 mcg/mL Test 06/03/17 16:36 Glucose (Fingerstick) 389 mg/dL (70-99) Laboratory Tests Test 06/02/17 16:44 06/03/17 04:40 06/03/17 07:37 06/03/17 11:49 Glucose (Fingerstick) 338 mg/dL (70-99) 262 mg/dL (70-99) 174 mg/dL (70-99) White Blood Count 10.4 x10^3/uL (4.0-11.0) Red Blood Count 3.51 x10^6/uL (4.30-5.70) Hemoglobin 11.3 g/dL (13.0-17.5) Hematocrit 33.1 % (39.0-53.0) Mean Corpuscular Volume 95 fL (79-100) Mean Corpuscular Hemoglobin 32 pg (25-35) Mean Corpuscular Hemoglobin Concent 34 g/dL (31-37) Red Cell Distribution Width 14.0 % (11.5-14.5) Platelet Count 209 x10^3/uL (140-400) Random Vancomycin Level 18.8 mcg/mL Test 06/03/17 16:36 Glucose (Fingerstick) 389 mg/dL (70-99) Medications Current Medications Sodium Chloride (Normal Saline Flush) 3 ml PRN DAILY PRN IV AFTER MEDS AND BLOOD DRAWS; Start 06/01/17 at 13:15 Ondansetron HCl (Zofran) 4 mg PRN Q6HRS PRN IV NAUSEA/VOMITING; Start 06/02/17 at 07:00; Stop 06/02/17 at 10:48; Status DC Fentanyl Citrate (Fentanyl 2ml Vial) 25 mcg PRN Q5MIN PRN IV MILD PAIN; Start 06/02/17 at 07:00; Stop 06/02/17 at 10:49; Status DC Fentanyl Citrate (Fentanyl 2ml Vial) 50 mcg PRN Q5MIN PRN IV MODERATE PAIN; Start 06/02/17 at 07:00; Stop 06/02/17 at 10:49; Status DC Morphine Sulfate 1 mg PRN Q10MIN PRN IV SEVERE PAIN; Start 06/02/17 at 07:00; Stop 06/02/17 at 10:49; Status DC Ringer's Solution 1,000 ml @ 30 mls/hr Q24H IV ; Start 06/02/17 at 07:00; Stop 06/02/17 at 10:21; Status DC Lidocaine HCl (Xylocaine-Mpf 1% Vial) 2 ml PRN 1X PRN ID IV START; Start at 07:00; Stop 06/02/17 at 10:49; Status DC Hydromorphone HCl (Dilaudid) 0.5 mg PRN Q10MIN PRN IV SEV PAIN, Second choice; Start 06/02/17 at 07:00; Stop 06/02/17 at 10:49; Status DC Prochlorperazine Edisylate (Compazine) 5 mg PACU PRN PRN IV NAUSEA, MRX1; Start 06/02/17 at 07:00; Stop 06/02/17 at 10:49; Status DC Piperacillin Sod/ Tazobactam Sod 2.25 gm/Dextrose 50 ml @ 100 mls/hr Q8HRS IV ; Start 06/01/17 at 22:00; Status Cancel Clindamycin Phosphate 50 ml @ 100 mls/hr Q8H IV Last administered on 02:19; Start 06/01/17 at 19:00; Stop 06/02/17 at 07:26; Status DC Vancomycin HCl (Vanco Per Pharmacy) 1 each PRN DAILY PRN MC SEE COMMENTS Last administered on 06/03/17 07:26; Start 06/01/17 at 19:00 Micafungin Sodium 100 mg/Dextrose 100 ml @ 100 mls/hr 1X ONCE IV ; Start 06/01 at 19:00; Stop 06/01/17 at 19:59; Status Cancel Piperacillin Sod/ Tazobactam Sod (Zosyn) 2.25 gm Q8HRS IVP Last administered on 06/03/17 15:00; Start 06/01/17 at 22:00 Vancomycin HCl 2 gm/Dextrose/ Sodium Chloride 500 ml @ 250 mls/hr 1X ONCE IV Last administered on 06/01/17 20:46; Start 06/01/17 at 20:00; Stop 06/01/17 at 21:59; Status DC Micafungin Sodium 100 mg/Sodium Chloride 100 ml @ 100 mls/hr 1X ONCE IV Last administered on 06/01/17 20:46; Start 06/01/17 at 20:00; Stop 06/02/17 at 07:26 ; Status DC Heparin Sodium (Porcine) (Heparin Sq) 5,000 unit Q8HRS SQ Last administered on 06/03/17 14:59; Start 06/01/17 at 22:00 Lidocaine HCl 20 ml STK-MED ONCE .ROUTE Last administered on 06/02/17 07:54; Start 06/02/17 at 06:51; Stop 06/02/17 at 06:52; Status DC Bupivacaine HCl (Marcaine 0.5%) 50 ml STK-MED ONCE .ROUTE Last administered on 06/02/17 07:54; Start 06/02/17 at 06:51; Stop 06/02/17 at 06:52; Status DC Povidone Iodine ( Betadine Oint) 28 rosetta STK-MED ONCE TP ; Start 06/02/17 at 06: 52; Stop 06/02/17 at 06:53; Status DC Dexamethasone Sodium Phosphate (Decadron) 4 mg STK-MED ONCE .ROUTE ; Start 06/02 at 06:52; Stop 06/02/17 at 06:53; Status DC Propofol 20 ml @ As Directed STK-MED ONCE IV ; Start 06/02/17 at 07:17; Stop at 07:18; Status DC Dexamethasone Sodium Phosphate (Decadron) 20 mg STK-MED ONCE .ROUTE ; Start 06/02/17 at 07:17; Stop 06/02/17 at 07:18; Status DC Lidocaine HCl (Lidocaine Pf 2% Vial) 5 ml STK-MED ONCE .ROUTE ; Start 06/02/17 at 07:17; Stop 06/02/17 at 07:18; Status DC Ondansetron HCl (Zofran) 4 mg STK-MED ONCE .ROUTE ; Start 06/02/17 at 07:17; Stop 06/02/17 at 07:18; Status DC Fentanyl Citrate (Fentanyl 2ml Vial) 100 mcg STK-MED ONCE .ROUTE ; Start at 07:17; Stop 06/02/17 at 07:18; Status DC Sodium Chloride 500 ml @ 250 mls/hr PACU PRN PRN IV TKO Last administered on 06/02/17t 08:40; Start 06/02/17 at 07:30; Stop 06/02/17 at 10:49; Status DC Fluconazole (Diflucan) 100 mg DAILY PO Last administered on 06/03/17 13:38; Start 06/02/17 at 09:00 Lactobacillus Rhamnosus (Culturelle) 1 cap BID PO Last administered on 13:38; Start 06/02/17 at 09:00 Phenylephrine HCl (Ministerio-Synephrine Inj) 10 mg STK-MED ONCE .ROUTE ; Start at 07:56; Stop 06/02/17 at 07:57; Status DC Sodium Chloride (Sodium Chloride) 50 ml STK-MED ONCE IJ ; Start 06/02/17 at 07: 57; Stop 06/02/17 at 07:58; Status DC Sevoflurane (Ultane) 30 ml STK-MED ONCE IH ; Start 06/02/17 at 07:57; Stop 06/02 at 07:58; Status DC Sodium Chloride 1,000 ml @ 100 mls/hr Q10H IV ; Start 06/02/17 at 08:00; Stop 06/02/17 at 10:21; Status DC Vancomycin HCl 1 each 1X ONCE MC ; Start 06/03/17 at 06:00; Stop 06/03/17 at 06 :01; Status DC Acetaminophen/ Hydrocodone Bitart (Lortab 5/325) 1 tab PRN Q4HRS PRN PO MODERATE PAIN Last administered on 06/03/17 13:38; Start 06/02/17 at 11:45 Insulin Aspart (NovoLOG) 0-7 UNITS TIDWMEALS SQ Last administered on 06/03/17 08:40; Start 06/02/17 at 17:30 Dextrose (Dextrose 50%-Water Syringe) 12.5 gm PRN Q15MIN PRN IV SEE COMMENTS; Start 06/02/17 at 17:15 Vancomycin HCl 500 mg/Sodium Chloride 100 ml @ 100 mls/hr QTUTHSA IV ; Start 06/03/17 at 16:00; Status Cancel Vancomycin HCl 750 mg/Sodium Chloride 250 ml @ 250 mls/hr QTUTHSA IV ; Start 06/03/17 at 16:00 Lidocaine HCl (Xylocaine-Mpf 1% Vial) 2 ml STK-MED ONCE .ROUTE ; Start 06/03/17 at 08:52; Stop 06/03/17 at 08:53; Status DC Lidocaine HCl (Xylocaine-Mpf 1% Vial) 2 ml 1X ONCE INJ Last administered on 09:00; Start 06/03/17 at 09:00; Stop 06/03/17 at 09:01; Status DC Info (PHARMACY MONITORING -- do not chart) 1 each PRN DAILY PRN MC SEE COMMENTS ; Start 06/03/17 at 09:00 Active Scripts Active Reported Novolog Flexpen (Insulin Aspart) 100 Unit/1 Ml Insuln.pen 4-6 Unit SQ TIDWMEALS Nephro-Alexander Tablet (Folic Acid/Vitamin B Comp W-C) 0.8 Mg Tablet 1 Tab PO DAILY Bupropion Xl (Bupropion Hcl) 150 Mg Tab.er.24h 1 Tab PO DAILY Trazodone Hcl 100 Mg Tablet 1 Tab PO QHS Atorvastatin Calcium 40 Mg Tablet 1 Tab PO QHS Abilify (Aripiprazole) 5 Mg Tablet 5 Mg PO DAILY Carvedilol 3.125 Mg Tablet 3.125 Mg PO BIDWMEALS Gabapentin 100 Mg Capsule 100 Mg PO TID Lasix (Furosemide) 40 Mg Tablet 1 Tab PO DAILY Vitals/I & O Vital Sign - Last 24 Hours 06/02/17 06/02/17 06/02/17 06/02/17 19:00 19:23 20:12 23:00 Temp 98.7 97.8 98.7 97.8 Pulse 80 72 Resp 18 18 B/P (MAP) 170/83 (112) 153/69 (97) Pulse Ox 96 97 O2 Delivery Room Air Room Air Room Air Room Air 06/03/17 06/03/17 06/03/17 06/03/17 03:00 05:42 07:00 08:30 Temp 97.8 97.5 97.8 97.5 Pulse 66 66 Resp 18 18 B/P (MAP) 142/73 (96) 150/73 (98) Pulse Ox 98 97 O2 Delivery Room Air Room Air Room Air Room Air 06/03/17 06/03/17 06/03/17 13:38 14:38 15:07 Temp 98.1 98.1 Pulse 83 Resp 18 18 B/P (MAP) 167/75 (105) Pulse Ox 97 O2 Delivery Room Air Room Air Room Air Intake and Output 06/02/17 06/02/17 06/03/17 15:00 23:00 07:00 Intake Total 1140 ml 620 ml Output Total 505 ml 600 ml 250 ml Balance 635 ml 20 ml -250 ml Images xray 3 views right foot 06/02/17: note status post resection of hallux and metatarsal head. soft tissue gas is consistent with recent surgery. RENÉ CASTRO DPM Jun 03, 2017 16:49
[2017-06-03 19:20] VITALS: BP 156/78
[2017-06-03] MEDS ORDERED: INSULIN ASPART 300 UNITS/3 ML INSULN.PEN SQ ONE (19:30)
[2017-06-03] MEDS ORDERED: traZODone 100 MG TABLET. PO SCH (21:00)
[2017-06-03] MEDS ORDERED: ATORVASTATIN CALCIUM 40 MG TABLET. PO SCH (21:00)
[2017-06-03] MEDS: GABAPENTIN 100 MG CAPSULE. PO SCH (21:49)
[2017-06-03 22:56] VITALS: BP 160/77
[2017-06-04 03:11] VITALS: BP 127/72
[2017-06-04] MEDS: PIPERACILLIN/TAZO IV Push 2.25 GM VIAL. IVP SCH ×2 (06:00→15:52)
[2017-06-04] MEDS: HEPARIN PF for SUB-Q USE 5,000 UNIT/0.5 ML VIAL. SQ SCH ×2 (06:33→16:01)
[2017-06-04 07:34] VITALS: BP 139/79
[2017-06-04] MEDS: CARVEDILOL 3.125 MG TABLET. PO SCH ×2 (08:00→17:00)
[2017-06-04] MEDS: INSULIN ASPART 300 UNITS/3 ML INSULN.PEN SQ SCH ×3 (08:00→17:00)
[2017-06-04] MEDS: LACTOBACILLUS RHAMNOSUS GG 1 CAPSULE. PO SCH (08:20)
[2017-06-04] MEDS: FLUCONAZOLE 100 MG TABLET. PO SCH (08:20)
[2017-06-04] MEDS: HYDROcodone/APAP 5/325MG 1 TAB TABLET PO PRN ×2 (08:20→15:54)
[2017-06-04] MEDS: GABAPENTIN 100 MG CAPSULE. PO SCH ×2 (08:22→15:51)
[2017-06-04] MEDS ORDERED: FOLIC/VIT B COMP W-C (RENAL) TABLET. PO SCH (09:00)
[2017-06-04] MEDS ORDERED: FUROSEMIDE 40 MG TABLET. PO SCH (09:00)
[2017-06-04] MEDS ORDERED: ARIPiprazole 5 MG TABLET PO SCH (09:00)
[2017-06-04] MEDS ORDERED: buPROPion XL 150 MG TAB.ER.24H. PO SCH (09:00)
[2017-06-04 10:56] VITALS: BP 177/109
--- NOTE | 2017-06-04 11:53 | PDOC ---
Renal-Progress Notes Subjective Notes Notes NONE History of Present Illness Hx of present illness NO CHANGE Vitals Vitals Vital Signs Date Time Temp Pulse Resp B/P (MAP) Pulse Ox O2 Delivery O2 Flow Rate FiO2 06/04/17 09:20 Room Air 06/04/17 07:34 97.3 80 18 139/79 (99) 99 97.3 Weight Weight [ ] I.O. Intake and Output Intake and Output 06/04/17 07:00 Intake Total 600 ml Output Total 875 ml Balance -275 ml Intake Oral 600 ml Output Urine Total 875 ml # Voids 4 Labs Labs Laboratory Tests Test 06/03/17 16:36 06/03/17 19:21 06/03/17 20:58 06/04/17 07:37 Glucose (Fingerstick) 389 mg/dL (70-99) 114 mg/dL (70-99) 173 mg/dL (70-99) 125 mg/dL (70-99) Test 06/04/17 11:45 Glucose (Fingerstick) 150 mg/dL (70-99) Review of Systems Constitutional: yes: alert, oriented Ears/Nose/Throat: Yes: no symptom reported Eyes: Yes: no symptom reported Pulmonary: Yes no symptom reported Cardiovascular: Yes no symptom reported Genitourinary: Yes: no symptom reported Musculoskeletal: Yes: foot pain, muscle stiffness Skin: Yes no symptom reported Psychiatric/Neurological: Yes: no symptom reported Endocrine: Yes: no symptom reported Physical Exam General Appearance: no apparent distress Skin: warm Respiratory: bilateral CTA Heart: S1S2 Abdomen: soft Extremities: pulses present Neurology: alert, oriented Assessment Assessment IMP ESRD ANEMIA DM II HTN RIGHT FOOT OSTEO PLAN ANTIBIOTICS HD TTTS MAT TRINH MD Jun 04, 2017 11:53
--- NOTE | 2017-06-04 11:58 | PDOC ---
Infectious Disease Note Subjective Subjective Comfortable Wants to go home, but doesn't want to risk loosing foot either, considering rehab if qualifies. Otherwise he says he has transportation to dialysis, a WC and crutches to help with nonweightbearing and his nephew will be living with him to help out. ROS ROS GEN: Denies fevers, chills, sweats CV: Denies chest pain RESP: Denies shortness of air, cough GI: Denies n/v/d Vital Sign Vital Signs Vital Signs Date Time Temp Pulse Resp B/P (MAP) Pulse Ox O2 Delivery O2 Flow Rate FiO2 06/04/17 09:20 Room Air 06/04/17 07:34 97.3 80 18 139/79 (99) 99 97.3 Physical Exam PHYSICAL EXAM GENREAL: in chair, NAD LUNGS: Clear HEART: S1 and S2 ABD: BS active, soft, NT EXT: LUE-AV fistula. Right foot dressing dry. SKIN: without rash Labs Lab Laboratory Tests Test 06/03/17 11:49 06/03/17 16:36 06/03/17 19:21 06/03/17 20:58 Glucose (Fingerstick) 174 mg/dL (70-99) 389 mg/dL (70-99) 114 mg/dL (70-99) 173 mg/dL (70-99) Test 06/04/17 07:37 Glucose (Fingerstick) 125 mg/dL (70-99) Objective Assessment Right foot wound on plantar aspect - likely osteomyelitis, s/p partial first ray amputation, right foot. 06/02. no cultures DM since age 16 CKD on HD - since Jul 2016 COPD Plan Plan of Care Vanc, Zosyn and fluconazole. wean to Augmentin on discharge. Rx in chart Dr. Lyon note reviewed. Rec rehab. High risk of limb loss d/t noncompliance Remains non weight bearing. Supportive care Attending Co-Sign The patient was seen and interviewed as well as examined at the bedside. The chart was reviewed. The case was discussed. Agree with the plan of care. CARLOS CAICEDO APRN Jun 04, 2017 11:58 ANDRE MEDINA MD Jun 04, 2017 13:51
--- NOTE | 2017-06-04 14:02 | PDOC ---
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 NOEMI RN, podiatry reluctant to sign off Pt reports that he has home set up for HD Vitals Vitals Vital Signs Date Time Temp Pulse Resp B/P (MAP) Pulse Ox O2 Delivery O2 Flow Rate FiO2 06/04/17 10:56 97.3 72 18 177/109 (131) 99 Room Air 97.3 Physical Exam General: Alert, Oriented X3, Cooperative, No acute distress Heart: Regular rate, Normal S1, Normal S2, No murmurs Lungs: Clear, Other (No rales, rhonchi, wheezes) Abdomen: Soft, No tenderness Extremities: No clubbing, No cyanosis, No edema, Other (Rt foot ulcer bandaged) Skin: No rashes Labs LABS Laboratory Tests Test 06/03/17 16:36 06/03/17 19:21 06/03/17 20:58 06/04/17 07:37 Glucose (Fingerstick) 389 mg/dL (70-99) 114 mg/dL (70-99) 173 mg/dL (70-99) 125 mg/dL (70-99) Test 06/04/17 11:45 Glucose (Fingerstick) 150 mg/dL (70-99) Review of Systems Review of Systems General: No Fatigue, Hunger, Fever, Night sweats Assessment and Plan Assessmemt and Plan Assessment: Osteomyelitis Diabetic foot ulcer Cellulitis Tobacco abuse ESRD on dialysis Mod alcohol abuse Possible osteomyelitis Dietary noncompliance Plan: Continue Wound Care Continue HD Continue Lasix Continue Home Meds Continue PT/OT Recheck Labs DC probable- Await Podiatry Input Problems: Comment Review of Relevant I have reviewed the following items sabina (where applicable) has been applied. Labs Laboratory Tests Test 06/02/17 16:44 06/03/17 04:40 06/03/17 07:37 06/03/17 11:49 Glucose (Fingerstick) 338 mg/dL (70-99) 262 mg/dL (70-99) 174 mg/dL (70-99) White Blood Count 10.4 x10^3/uL (4.0-11.0) Red Blood Count 3.51 x10^6/uL (4.30-5.70) Hemoglobin 11.3 g/dL (13.0-17.5) Hematocrit 33.1 % (39.0-53.0) Mean Corpuscular Volume 95 fL (79-100) Mean Corpuscular Hemoglobin 32 pg (25-35) Mean Corpuscular Hemoglobin Concent 34 g/dL (31-37) Red Cell Distribution Width 14.0 % (11.5-14.5) Platelet Count 209 x10^3/uL (140-400) Random Vancomycin Level 18.8 mcg/mL Test 06/03/17 16:36 06/03/17 19:21 06/03/17 20:58 06/04/17 07:37 Glucose (Fingerstick) 389 mg/dL (70-99) 114 mg/dL (70-99) 173 mg/dL (70-99) 125 mg/dL (70-99) Test 06/04/17 11:45 Glucose (Fingerstick) 150 mg/dL (70-99) Laboratory Tests Test 06/03/17 16:36 06/03/17 19:21 06/03/17 20:58 06/04/17 07:37 Glucose (Fingerstick) 389 mg/dL (70-99) 114 mg/dL (70-99) 173 mg/dL (70-99) 125 mg/dL (70-99) Test 06/04/17 11:45 Glucose (Fingerstick) 150 mg/dL (70-99) Medications Current Medications Sodium Chloride (Normal Saline Flush) 3 ml PRN DAILY PRN IV AFTER MEDS AND BLOOD DRAWS; Start 06/01/17 at 13:15 Ondansetron HCl (Zofran) 4 mg PRN Q6HRS PRN IV NAUSEA/VOMITING; Start 06/02/17 at 07:00; Stop 06/02/17 at 10:48; Status DC Fentanyl Citrate (Fentanyl 2ml Vial) 25 mcg PRN Q5MIN PRN IV MILD PAIN; Start 06/02/17 at 07:00; Stop 06/02/17 at 10:49; Status DC Fentanyl Citrate (Fentanyl 2ml Vial) 50 mcg PRN Q5MIN PRN IV MODERATE PAIN; Start 06/02/17 at 07:00; Stop 06/02/17 at 10:49; Status DC Morphine Sulfate 1 mg PRN Q10MIN PRN IV SEVERE PAIN; Start 06/02/17 at 07:00; Stop 06/02/17 at 10:49; Status DC Ringer's Solution 1,000 ml @ 30 mls/hr Q24H IV ; Start 06/02/17 at 07:00; Stop 06/02/17 at 10:21; Status DC Lidocaine HCl (Xylocaine-Mpf 1% Vial) 2 ml PRN 1X PRN ID IV START; Start at 07:00; Stop 06/02/17 at 10:49; Status DC Hydromorphone HCl (Dilaudid) 0.5 mg PRN Q10MIN PRN IV SEV PAIN, Second choice; Start 06/02/17 at 07:00; Stop 06/02/17 at 10:49; Status DC Prochlorperazine Edisylate (Compazine) 5 mg PACU PRN PRN IV NAUSEA, MRX1; Start 06/02/17 at 07:00; Stop 06/02/17 at 10:49; Status DC Piperacillin Sod/ Tazobactam Sod 2.25 gm/Dextrose 50 ml @ 100 mls/hr Q8HRS IV ; Start 06/01/17 at 22:00; Status Cancel Clindamycin Phosphate 50 ml @ 100 mls/hr Q8H IV Last administered on 02:19; Start 06/01/17 at 19:00; Stop 06/02/17 at 07:26; Status DC Vancomycin HCl (Vanco Per Pharmacy) 1 each PRN DAILY PRN MC SEE COMMENTS Last administered on 06/03/17 07:26; Start 06/01/17 at 19:00 Micafungin Sodium 100 mg/Dextrose 100 ml @ 100 mls/hr 1X ONCE IV ; Start 06/01 at 19:00; Stop 06/01/17 at 19:59; Status Cancel Piperacillin Sod/ Tazobactam Sod (Zosyn) 2.25 gm Q8HRS IVP Last administered on 06/04/17 06:00; Start 06/01/17 at 22:00 Vancomycin HCl 2 gm/Dextrose/ Sodium Chloride 500 ml @ 250 mls/hr 1X ONCE IV Last administered on 06/01/17 20:46; Start 06/01/17 at 20:00; Stop 06/01/17 at 21:59; Status DC Micafungin Sodium 100 mg/Sodium Chloride 100 ml @ 100 mls/hr 1X ONCE IV Last administered on 06/01/17 20:46; Start 06/01/17 at 20:00; Stop 06/02/17 at 07:26 ; Status DC Heparin Sodium (Porcine) (Heparin Sq) 5,000 unit Q8HRS SQ Last administered on 06/04/17 06:33; Start 06/01/17 at 22:00 Lidocaine HCl 20 ml STK-MED ONCE .ROUTE Last administered on 06/02/17 07:54; Start 06/02/17 at 06:51; Stop 06/02/17 at 06:52; Status DC Bupivacaine HCl (Marcaine 0.5%) 50 ml STK-MED ONCE .ROUTE Last administered on 06/02/17 07:54; Start 06/02/17 at 06:51; Stop 06/02/17 at 06:52; Status DC Povidone Iodine ( Betadine Oint) 28 rosetta STK-MED ONCE TP ; Start 06/02/17 at 06: 52; Stop 06/02/17 at 06:53; Status DC Dexamethasone Sodium Phosphate (Decadron) 4 mg STK-MED ONCE .ROUTE ; Start 06/02 at 06:52; Stop 06/02/17 at 06:53; Status DC Propofol 20 ml @ As Directed STK-MED ONCE IV ; Start 06/02/17 at 07:17; Stop at 07:18; Status DC Dexamethasone Sodium Phosphate (Decadron) 20 mg STK-MED ONCE .ROUTE ; Start 06/02/17 at 07:17; Stop 06/02/17 at 07:18; Status DC Lidocaine HCl (Lidocaine Pf 2% Vial) 5 ml STK-MED ONCE .ROUTE ; Start 06/02/17 at 07:17; Stop 06/02/17 at 07:18; Status DC Ondansetron HCl (Zofran) 4 mg STK-MED ONCE .ROUTE ; Start 06/02/17 at 07:17; Stop 06/02/17 at 07:18; Status DC Fentanyl Citrate (Fentanyl 2ml Vial) 100 mcg STK-MED ONCE .ROUTE ; Start at 07:17; Stop 06/02/17 at 07:18; Status DC Sodium Chloride 500 ml @ 250 mls/hr PACU PRN PRN IV TKO Last administered on 06/02/17 08:40; Start 06/02/17 at 07:30; Stop 06/02/17 at 10:49; Status DC Fluconazole (Diflucan) 100 mg DAILY PO Last administered on 06/04/17 08:20; Start 06/02/17 at 09:00 Lactobacillus Rhamnosus (Culturelle) 1 cap BID PO Last administered on 08:20; Start 06/02/17 at 09:00 Phenylephrine HCl (Ministerio-Synephrine Inj) 10 mg STK-MED ONCE .ROUTE ; Start at 07:56; Stop 06/02/17 at 07:57; Status DC Sodium Chloride (Sodium Chloride) 50 ml STK-MED ONCE IJ ; Start 06/02/17 at 07: 57; Stop 06/02/17 at 07:58; Status DC Sevoflurane (Ultane) 30 ml STK-MED ONCE IH ; Start 06/02/17 at 07:57; Stop 06/02 at 07:58; Status DC Sodium Chloride 1,000 ml @ 100 mls/hr Q10H IV ; Start 06/02/17 at 08:00; Stop 06/02/17 at 10:21; Status DC Vancomycin HCl 1 each 1X ONCE MC ; Start 06/03/17 at 06:00; Stop 06/03/17 at 06 :01; Status DC Acetaminophen/ Hydrocodone Bitart (Lortab 5/325) 1 tab PRN Q4HRS PRN PO MODERATE PAIN Last administered on 06/04/17 08:20; Start 06/02/17 at 11:45 Insulin Aspart (NovoLOG) 0-7 UNITS TIDWMEALS SQ Last administered on 06/03/17 16:53; Start 06/02/17 at 17:30 Dextrose (Dextrose 50%-Water Syringe) 12.5 gm PRN Q15MIN PRN IV SEE COMMENTS; Start 06/02/17 at 17:15 Vancomycin HCl 500 mg/Sodium Chloride 100 ml @ 100 mls/hr QTUTHSA IV ; Start 06/03/17 at 16:00; Status Cancel Vancomycin HCl 750 mg/Sodium Chloride 250 ml @ 250 mls/hr QTUTHSA IV Last administered on 06/03/17 16:33; Start 06/03/17 at 16:00 Lidocaine HCl (Xylocaine-Mpf 1% Vial) 2 ml STK-MED ONCE .ROUTE ; Start 06/03/17 at 08:52; Stop 06/03/17 at 08:53; Status DC Lidocaine HCl (Xylocaine-Mpf 1% Vial) 2 ml 1X ONCE INJ Last administered on 09:00; Start 06/03/17 at 09:00; Stop 06/03/17 at 09:01; Status DC Info (PHARMACY MONITORING -- do not chart) 1 each PRN DAILY PRN MC SEE COMMENTS ; Start 06/03/17 at 09:00 Aripiprazole (Abilify) 5 mg DAILY PO ; Start 06/04/17 at 09:00 Atorvastatin Calcium (Lipitor) 40 mg QHS PO Last administered on 06/03/17 21: 49; Start 06/03/17 at 21:00 Bupropion HCl (Wellbutrin Xl) 150 mg DAILY PO ; Start 06/04/17 at 09:00 Carvedilol (Coreg) 3.125 mg BIDWMEALS PO ; Start 06/04/17 at 08:00 Vitamin B Complex/ Vitamin C (Gege-Alexander) 1 tab DAILY PO ; Start 06/04/17 at 09: 00 Furosemide (Lasix) 40 mg DAILY PO ; Start 06/04/17 at 09:00 Gabapentin (Neurontin) 100 mg TID PO Last administered on 06/03/17 21:49; Start 06/03/17 at 21:00 Trazodone HCl (Desyrel) 100 mg QHS PO ; Start 06/03/17 at 21:00 Insulin Aspart (NovoLOG) 1 units 1X ONCE SQ ; Start 06/03/17 at 19:30; Stop at 19:31; Status DC Active Scripts Active Reported Novolog Flexpen (Insulin Aspart) 100 Unit/1 Ml Insuln.pen 4-6 Unit SQ TIDWMEALS Nephro-Alexander Tablet (Folic Acid/Vitamin B Comp W-C) 0.8 Mg Tablet 1 Tab PO DAILY Bupropion Xl (Bupropion Hcl) 150 Mg Tab.er.24h 1 Tab PO DAILY Trazodone Hcl 100 Mg Tablet 1 Tab PO QHS Atorvastatin Calcium 40 Mg Tablet 1 Tab PO QHS Abilify (Aripiprazole) 5 Mg Tablet 5 Mg PO DAILY Carvedilol 3.125 Mg Tablet 3.125 Mg PO BIDWMEALS Gabapentin 100 Mg Capsule 100 Mg PO TID Lasix (Furosemide) 40 Mg Tablet 1 Tab PO DAILY Vitals/I & O Vital Sign - Last 24 Hours 06/03/17 06/03/17 06/03/17 06/03/17 15:07 19:20 19:26 19:55 Temp 98.1 98.3 98.1 98.3 Pulse 83 72 Resp 18 18 B/P (MAP) 167/75 (105) 156/78 (104) Pulse Ox 97 96 O2 Delivery Room Air Room Air Room Air Room Air 06/03/17 06/03/17 06/04/17 06/04/17 20:26 22:56 03:11 07:34 Temp 97.8 98.1 97.3 97.8 98.1 97.3 Pulse 71 79 80 Resp 18 18 18 18 B/P (MAP) 160/77 (104) 127/72 (90) 139/79 (99) Pulse Ox 96 97 99 O2 Delivery Room Air Room Air Room Air 06/04/17 06/04/17 06/04/17 06/04/17 08:15 08:20 09:20 10:56 Temp 97.3 97.3 Pulse 72 Resp 18 B/P (MAP) 177/109 (131) Pulse Ox 99 O2 Delivery Room Air Room Air Room Air Room Air Intake and Output 06/03/17 06/03/17 06/04/17 15:00 23:00 07:00 Intake Total 120 ml 480 ml Output Total 875 ml Balance 120 ml -395 ml HIRAM COPELAND III DO Jun 04, 2017 14:02
[2017-06-04 14:50] VITALS: BP 212/92
--- NOTE | 2017-06-08 13:49 | PATHOLOGY ---
PATHOLOGY REPORT * * * * * * * * FINAL DIAGNOSIS: First toe and distal segment of metatarsal bone with attached skin and subcutaneous tissue, partial right first ray amputation right foot: - Ulceration and acute cellulitis of plantar aspect of distal first metatarsal region with acute inflammation of metacarpal- phalangeal joint, focal acute cellulitis of proximal first toe, and focal acute osteomyelitis of distal first metatarsal head and proximal phalangeal bone. (JPM:db; 06/07/2017) REPORT ELECTRONICALLY SIGNED BY: Gregory Carrera M.D. DATE/TIME: 06/08/2017 13:48 * * * * * * * * GROSS PATHOLOGY: The specimen is received in formalin labeled Ava Fleming, toe and metatarsal head right" is a moderately disrupted digit with a bhatia white firm nail and em white skin. The specimen measures 6.0 cm in length and 3.0 cm in diameter. There is a portion of metatarsal head and soft tissue connected via fibrous tissue to the proximal phalangeal bone. The portion of metatarsal head measures 2.3 x 2.0 x 1.7 cm. The margin of the metatarsal head is smooth and uniform. The end opposite metatarsal head margin is convex, smooth, and em-brown. The proximal phalangeal bone shows a concave smooth em surface. The specimen is sectioned longitudinally revealing em-pink bone and bhatia white soft tissue. Manager Application sections are submitted A1-A5. A1 longitudinal section of dorsal skin digit and sections from attached hemorrhagic soft tissue (containing blue dye) A2 longitudinal section of attached metatarsal bone after decalcification A3-5 longitudinal section of digit from convex articular surface to distal tip after decalcification (ELEANOR; 06/05/2017) INITIAL CPT CODE(S): A; 63236, 91657 Professional services performed by [facility] [address] [place] [address] Technical services performed by [facility] at [address] [place] [address], [address], [place] [address]. SPECIMEN(S) RECEIVED: A.Toe and metatarsal head, right CLINICAL HISTORY: Osteomyelitis PATIENT: AVA FLEMING /AGE: 8 1965 (Age: 52) PATIENT #: [id number] ALT CASE #: SPECIMEN COLLECTION DATE: 06/02/2017 SPECIMEN RECEIVED DATE: 06/02/2017 [facility] - [address] [address] - PHONE: [phone] * * * END OF REPORT * * *
--- NOTE | 2017-06-09 12:35 | DS ---
DATE OF DISCHARGE: 06/04/2017 ADMISSION DIAGNOSES: 1. Osteomyelitis of the right foot. 2. End-stage renal disease, on dialysis. DISCHARGE DIAGNOSES: 1. Resolving osteomyelitis. 2. Chronic end-stage renal disease, on dialysis. 3. Former alcohol issues and drug issues, but he has quit. 4. Tobacco abuse. 5. Postoperative debridement. HOSPITAL COURSE: The patient is a pleasant 52-year-old male who presented with osteomyelitis of the right foot. He was admitted. We consulted his unstacker. We gave him wound care, IV antibiotics, IV fluids, p.r.n. narcotics and we did dialysis. Over the next few days, he returned to his baseline, be discharged home with close outpatient followup. DISPOSITION: Home. ACTIVITY: As tolerated. DIET: Low sodium. MEDICATIONS: Please see MRAD. TOTAL TIME ON DISCHARGE: 33 minutes. ELLIEL Shakira COPELAND DO DR: RICHELLE/sarah JOB#: [id number] / [id number]
== END 2017-06-04 18:30 | disposition home or self-care (01) | DRG 239 ==
LOC: 4 NORTH 12:47 → EDSTATUS 06-02 07:30
PROVIDERS: ADMIT Family Medicine; ATTEND Family Medicine
PROC: 0Y6M0Z9 Detachment at Right Foot, Partial 1st Ray, Open Approach (ICD-10-PCS; principal; 2017-06-02 07:30)
PROC: 5A1D70Z Performance of Urinary Filtration, Intermittent, Less than 6 Hours Per Day (ICD-10-PCS; 2017-06-03)
DX: E10.52 Type 1 diabetes mellitus with diabetic peripheral angiopathy with gangrene (principal); N18.6 End stage renal disease; I12.0 Hypertensive chronic kidney disease with stage 5 chronic kidney disease or end stage renal disease; M86.9 Osteomyelitis, unspecified; L03.90 Cellulitis, unspecified; E10.22 Type 1 diabetes mellitus with diabetic chronic kidney disease; E10.42 Type 1 diabetes mellitus with diabetic polyneuropathy; E10.69 Type 1 diabetes mellitus with other specified complication; E10.621 Type 1 diabetes mellitus with foot ulcer; D64.9 Anemia, unspecified; F10.10 Alcohol abuse, uncomplicated; F17.210 Nicotine dependence, cigarettes, uncomplicated; J44.9 Chronic obstructive pulmonary disease, unspecified; F32.9 Major depressive disorder, single episode, unspecified; L97.519 Non-pressure chronic ulcer of other part of right foot with unspecified severity; F41.9 Anxiety disorder, unspecified; Z96.1 Presence of intraocular lens; Z79.4 Long term (current) use of insulin; Z82.49 Family history of ischemic heart disease and other diseases of the circulatory system; Z83.3 Family history of diabetes mellitus; Z91.11 Patient's noncompliance with dietary regimen; Z91.15 Patient's noncompliance with renal dialysis; Z91.19 Patient's noncompliance with other medical treatment and regimen; Z99.2 Dependence on renal dialysis; Z98.49 Cataract extraction status, unspecified eye
CPT/HCPCS: 36415; 71010; 73630; 80053; 80202; 82306; 82962; 83036; 85025; 85027; 85651; 86140; 88305; 88311; 93005; 93923; C1769; J1100; J1815; J2248; J2405; J2543; J2704; J3010; J3370; J3490; J7050; A4461; J2001; J7030

== ENCOUNTER → 2017-07-05 | Outpatient (CLI) | payer MEDICARE, OTHER | END | disposition home or self-care (01) | LOC: SPEC 16:07 | DX: M86.8X7 Other osteomyelitis, ankle and foot (principal) | CPT/HCPCS: 87071; 87075; 87205; 88307; 88311 ==

== ENCOUNTER 2017-08-25 09:09 | Outpatient (CLI) | payer MEDICARE, OTHER ==
[2017-08-25 10:03] LABS: INR 1.2 (0.8-1.1); PROTHROMBIN TIME PATIENT 14.6 SEC (11.7-14.0)
[2017-08-25] MEDS ORDERED: LIDOCAINE WITH 8.4% SOD BICARB 3 ML DISP.SYRIN. (10:39)
[2017-08-25] MEDS: LIDOCAINE WITH 8.4% SOD BICARB 3 ML DISP.SYRIN. INJ (10:45)
== END 2017-08-25 11:15 | disposition home or self-care (01) ==
LOC: INTRAD 09:09
DX: Z45.2 Encounter for adjustment and management of vascular access device (principal); E11.22 Type 2 diabetes mellitus with diabetic chronic kidney disease; I12.0 Hypertensive chronic kidney disease with stage 5 chronic kidney disease or end stage renal disease; N18.6 End stage renal disease; Z99.2 Dependence on renal dialysis; E11.42 Type 2 diabetes mellitus with diabetic polyneuropathy; F32.9 Major depressive disorder, single episode, unspecified; F41.9 Anxiety disorder, unspecified; Z89.431 Acquired absence of right foot; Z87.891 Personal history of nicotine dependence; Z79.4 Long term (current) use of insulin; Z83.3 Family history of diabetes mellitus
CPT/HCPCS: 36415; 36589; 77001; 85610